=== PATIENT | female | born 1960 | race Caucasian/White ===

== ENCOUNTER → 2016-06-12 | Outpatient (CLI) | payer MEDICARE, MEDICAID ==
[~2016-06-12] VITALS: Ht 160 cm; Wt 83.9 kg
[~2016-06-12] MED LIST: AMBIEN 10MG10 MG PO; BACTRIM DS 8001 TAB PO; BUPROPRION; CALCIUM + D 5001 TAB; CELEXA; CELEXA 20MG20 MG/TAB PO; CELEXA40 MG PO; CEPHALEXIN500 M1 PO; COZAAR 50MG50 MG/TAB PO; COZAAR100 MG PO; DILAUDID 2MG TAB2 MG PO; EFFEXOR 75M75 MG/TAB PO; EMBEDA PO; ESTRACE0.5 MG PO; HTN MED; LORTAB 5/500 501 TAB PO; LYRICA 100MG C100 M1 PO; LYRICA 150MG C150 MG PO; LYRICA 75MG CAP75 MG PO; LYRICA200 MG PO; MOBIC15 MG PO; MULTIPLE VITAMI1 TA7 PO; NAPROSYN 2250 MG/TAB PO; NATURE'S BLE1000 MCG PO; NEURONTIN300 MG/CAP PO; NIACIN PO; NORCO 325 MG-101 TAB PO; PERCOCET 325 MG1 TA2 PO; PERCOCET 325 MG1 TAB PO; PERCR 7.5 PO; PHENTERMINE15 MG; PRIL40 PO; PRILOSEC 20MG20 MG PO; PROMETRIUM200 M1 PO; PROMETRIUM200 MG PO; SYNTHROID 0.0.025 MG PO; VICODIN 5/5001 UDTAB PO; VITAMIN B121000 MC1 PO; VITAMIN D3400 I1 PO; WELLBUTRIN XL150 MG PO; WELLBUTRIN XL300 M1 PO; ZANAFLEX 4MG TAB4 MG PO; ZOHYDRO ER10 MG PO; ZOHYDRO ER15 MG PO
[2016-06-12 11:13] VITALS: BP 145/89; PULSE 77
[2016-06-12 11:34] VITALS: BP 145/89; PULSE 77
== END ==
LOC: LIGHT 11:10
DX: I10 Essential (primary) hypertension (principal); R73.01 Impaired fasting glucose; E66.09 Other obesity due to excess calories; Z68.32 Body mass index [BMI] 32.0-32.9, adult; E88.81 Metabolic syndrome and other insulin resistance

== ENCOUNTER → 2016-09-15 | Outpatient (CLI) | payer MEDICARE, MEDICAID | LOC: MHCPAIN 09:58 | DX: G89.29 Other chronic pain (principal); M47.817 Spondylosis without myelopathy or radiculopathy, lumbosacral region; M54.16 Radiculopathy, lumbar region; M53.3 Sacrococcygeal disorders, not elsewhere classified; M96.1 Postlaminectomy syndrome, not elsewhere classified | CPT/HCPCS: G0463; J1100 ==

== ENCOUNTER → 2016-09-18 | Outpatient (CLI) | payer MEDICARE, MEDICAID | LOC: MHCPAIN 09:21 | DX: M54.16 Radiculopathy, lumbar region (principal) | CPT/HCPCS: J1100 ==

== ENCOUNTER → 2016-10-14 | Outpatient (CLI) | payer MEDICARE, MEDICAID | LOC: LIGHT 03-13 18:16 | DX: Z02.89 Encounter for other administrative examinations (principal) ==

== ENCOUNTER → 2016-11-04 | Outpatient (CLI) | payer MEDICARE, MEDICAID | LOC: MHCPAIN 11:06 | DX: G89.29 Other chronic pain (principal); M47.817 Spondylosis without myelopathy or radiculopathy, lumbosacral region; M54.16 Radiculopathy, lumbar region; M96.1 Postlaminectomy syndrome, not elsewhere classified | CPT/HCPCS: G0463 ==

== ENCOUNTER → 2016-11-25 | Outpatient (CLI) | payer MEDICARE, MEDICAID | LOC: MHCPAIN 12:05 | DX: G89.29 Other chronic pain (principal); M47.817 Spondylosis without myelopathy or radiculopathy, lumbosacral region; M54.16 Radiculopathy, lumbar region; M96.1 Postlaminectomy syndrome, not elsewhere classified | CPT/HCPCS: G0463 ==

== ENCOUNTER → 2017-02-16 | Outpatient (CLI) | payer MEDICARE, MEDICAID | LOC: MHCPAIN 08:30 | DX: G89.29 Other chronic pain (principal); M47.27 Other spondylosis with radiculopathy, lumbosacral region; M53.3 Sacrococcygeal disorders, not elsewhere classified; M96.1 Postlaminectomy syndrome, not elsewhere classified | CPT/HCPCS: G0463 ==

== ENCOUNTER → 2017-02-16 | Outpatient (CLI) | payer MEDICARE, MEDICAID ==
[~2017-02-16] MED LIST changes: +FASTIN30 MG PO; +PERCOCET 325 MG1 TA3 PO
[2017-02-16 10:49] LABS: ADJUSTED CALCIUM 9.7 mg/dL (8.4-10.2); BILIRUBIN,TOTAL 0.6 mg/dL (0.0-1.0); CALCIUM 9.7 mg/dL (8.4-10.2); CREATININE, serum 1.27 mg/dL (0.52-1.25); POTASSIUM 4.8 mmol/L (3.4-5.0)
== END ==
LOC: COL.LAB 09:32
PROVIDERS: Anesthesiology Pain Medicine
DX: Z51.81 Encounter for therapeutic drug level monitoring (principal)

== ENCOUNTER → 2017-02-26 | Outpatient (CLI) | payer MEDICARE, MEDICAID ==
[~2017-02-26] VITALS: Ht 160 cm; Wt 89.6 kg
[2017-02-26 13:28] VITALS: BP 128/88; PULSE 80
== END ==
LOC: LIGHT 10:57
DX: I10 Essential (primary) hypertension (principal); E66.9 Obesity, unspecified; Z68.36 Body mass index [BMI] 36.0-36.9, adult; Z71.3 Dietary counseling and surveillance; E88.81 Metabolic syndrome and other insulin resistance

== ENCOUNTER → 2017-04-29 | Outpatient (CLI) | payer MEDICARE, MEDICAID | LOC: MHCPAIN 11:03 | DX: G89.29 Other chronic pain (principal); M47.27 Other spondylosis with radiculopathy, lumbosacral region; M96.1 Postlaminectomy syndrome, not elsewhere classified; M53.3 Sacrococcygeal disorders, not elsewhere classified | CPT/HCPCS: G0463 ==

== ENCOUNTER → 2017-07-28 | Outpatient (CLI) | payer MEDICARE, MEDICAID | LOC: MHCPAIN 11:42 | DX: G89.29 Other chronic pain (principal); M47.817 Spondylosis without myelopathy or radiculopathy, lumbosacral region; M54.16 Radiculopathy, lumbar region; M53.3 Sacrococcygeal disorders, not elsewhere classified; M96.1 Postlaminectomy syndrome, not elsewhere classified | CPT/HCPCS: G0463 ==

== ENCOUNTER → 2017-08-05 | Outpatient (CLI) | payer MEDICARE, MEDICAID | LOC: MHCPAIN 12:44 | DX: G89.29 Other chronic pain (principal); M47.817 Spondylosis without myelopathy or radiculopathy, lumbosacral region; M54.16 Radiculopathy, lumbar region; M53.3 Sacrococcygeal disorders, not elsewhere classified; M96.1 Postlaminectomy syndrome, not elsewhere classified | CPT/HCPCS: G0463 ==

== ENCOUNTER → 2017-08-31 | Outpatient (CLI) | payer MEDICARE, MEDICAID | LOC: MC.RAD 08:40 | DX: Z12.31 Encounter for screening mammogram for malignant neoplasm of breast (principal) ==

== ENCOUNTER → 2017-10-30 | Outpatient (CLI) | payer MEDICARE, MEDICAID | LOC: MHCPAIN 09:40 | DX: G89.29 Other chronic pain (principal); M47.817 Spondylosis without myelopathy or radiculopathy, lumbosacral region; M54.16 Radiculopathy, lumbar region; M53.3 Sacrococcygeal disorders, not elsewhere classified; M96.1 Postlaminectomy syndrome, not elsewhere classified | CPT/HCPCS: G0463 ==

== ENCOUNTER → 2018-02-22 | Outpatient (CLI) | payer MEDICARE, MEDICAID | LOC: MHCPAIN 11:17 | DX: G89.29 Other chronic pain (principal); M47.817 Spondylosis without myelopathy or radiculopathy, lumbosacral region; M54.16 Radiculopathy, lumbar region; M53.3 Sacrococcygeal disorders, not elsewhere classified; M96.1 Postlaminectomy syndrome, not elsewhere classified | CPT/HCPCS: G0463 ==

== ENCOUNTER → 2018-02-25 | Outpatient (CLI) | payer MEDICARE, MEDICAID | LOC: MHCPAIN 10:31 | DX: M51.36 Other intervertebral disc degeneration, lumbar region (principal); M54.16 Radiculopathy, lumbar region | CPT/HCPCS: J1040; Q9967 ==

== ENCOUNTER → 2018-09-02 | Outpatient (CLI) | payer MEDICARE, MEDICAID | LOC: MHCPAIN 15:21 | DX: G89.29 Other chronic pain (principal); M47.817 Spondylosis without myelopathy or radiculopathy, lumbosacral region; M54.16 Radiculopathy, lumbar region; M53.3 Sacrococcygeal disorders, not elsewhere classified; M96.1 Postlaminectomy syndrome, not elsewhere classified | CPT/HCPCS: G0463 ==

== ENCOUNTER 2018-09-09 08:13 | Outpatient (CLI) | payer MEDICARE, MEDICAID ==
[~2018-09-09] VITALS: Ht 160 cm; Wt 97.4 kg
[2018-09-09] VITALS (7 sets, daily range): BP systolic 130–139; BP diastolic 54–90; PULSE 66–87
--- NOTE | 2018-09-09 09:45 | NUR ---
PT TO RM 10 POST MYELOGRAM. VSS AND AX0X3. PATIENT DENIES PAIN BEING WORSE THAN PREVIOUS. BAND AID TO LOWER BACK IS C/D/I. RESTING IN BED AT THIS TIME.
--- NOTE | 2018-09-09 11:00 | NUR ---
BAND AID TO LOWER BACK REMAINED C/D/I POST MYELOGRAM. VSS AND AX0X3. TOLERATED CLEAR LIQUIDS PO WITHOUT ISSUE. DISCHARGE INSTRUCTIONS REVIEWED AND SIGNED. PT WHEELED OUT SAFELY WHERE FRIEND WAS PRESENT HIGHWAY MAINTENANCE TECHNICIAN.
== END 2018-09-09 11:00 | disposition home or self-care (01) ==
LOC: COL.RAD 08:13
DX: M51.36 Other intervertebral disc degeneration, lumbar region (principal); M96.1 Postlaminectomy syndrome, not elsewhere classified; Z90.5 Acquired absence of kidney; Z98.1 Arthrodesis status
CPT/HCPCS: Q9965

== ENCOUNTER → 2018-10-18 | Outpatient (CLI) | payer MEDICARE, MEDICAID | LOC: MHCPAIN 10:08 | DX: G89.29 Other chronic pain (principal); M47.817 Spondylosis without myelopathy or radiculopathy, lumbosacral region; M54.16 Radiculopathy, lumbar region; M53.3 Sacrococcygeal disorders, not elsewhere classified; M96.1 Postlaminectomy syndrome, not elsewhere classified | CPT/HCPCS: G0463 ==

== ENCOUNTER 2018-10-22 14:37 | Day surgery (SDC) | payer MEDICARE, MEDICAID ==
[~2018-10-22] VITALS: Ht 157.5 cm; Wt 93.7 kg
[2018-10-22 14:55] VITALS: BP 136/79; PULSE 76; TEMP 98.1
[2018-10-22] MEDS ORDERED: OSCAL 500 TAB500 MG PO (14:58)
[2018-10-22] MEDS ORDERED: VITAMIN D31000 I1 PO (14:59)
[2018-10-22] MEDS ORDERED: VITAMIN B12 781 TAB PO (14:59)
[2018-10-22] MEDS ORDERED: ZANAFLEX 4MG TAB4 MG PO (15:02)
[2018-10-22] MEDS ORDERED: CELEBREX 200MG200 MG PO (15:03)
[2018-10-22] MEDS ORDERED: MULTIPLE VITAMI1 TA1 PO (15:03)
[2018-10-22 16:10] VITALS: BP 115/75; PULSE 79; TEMP 97.6
--- NOTE | 2018-10-22 16:10 | NUR ---
Patient brought back to bay 2. Ambulated to chair without difficulty. Alert and oriented. Denies any pain or nausea. Vital signs stable. Requesting muffin and soda, tolerating well. Friend Servando at bedside. Call gee within reach will continue to monitor.
[2018-10-22 16:25] VITALS: BP 121/91; PULSE 76
--- NOTE | 2018-10-22 16:25 | NUR ---
Patient states she is feeling well. Vital signs stable. Tolerating food and drink well. Will continue to monitor.
[2018-10-22 16:40] VITALS: BP 126/71; PULSE 85
--- NOTE | 2018-10-22 16:40 | NUR ---
Patient states that she is ready to go home. Vital signs stable. Discharge instructions reviewed, all questions answered. IV removed per orders. Patient to get dressed at this time.
--- NOTE | 2018-10-22 16:46 | NUR ---
Patient brought down to lobby via wheel chair. To be driven home by friend Fabian.
== END 2018-10-22 16:46 | disposition home or self-care (01) ==
LOC: SDCO 14:37
DX: K21.0 Gastro-esophageal reflux disease with esophagitis (principal); K92.1 Melena; K57.30 Diverticulosis of large intestine without perforation or abscess without bleeding; K64.1 Second degree hemorrhoids; G47.33 Obstructive sleep apnea (adult) (pediatric); K21.9 Gastro-esophageal reflux disease without esophagitis; E66.9 Obesity, unspecified; G89.29 Other chronic pain; M19.90 Unspecified osteoarthritis, unspecified site; F32.9 Major depressive disorder, single episode, unspecified; D64.9 Anemia, unspecified; Z96.642 Presence of left artificial hip joint; Z88.5 Allergy status to narcotic agent; Z88.1 Allergy status to other antibiotic agents
CPT/HCPCS: J2704; J7030

== ENCOUNTER → 2018-10-28 | Outpatient (CLI) | payer MEDICARE, MEDICAID ==
[~2018-10-28] MED LIST changes: +CELEBREX 200MG200 MG PO; +MULTIPLE VITAMI1 TA1 PO; +OSCAL 500 TAB500 MG PO; +VITAMIN B12 781 TAB PO; +VITAMIN D31000 I1 PO
== END ==
LOC: MC.RAD 15:45
DX: Z12.31 Encounter for screening mammogram for malignant neoplasm of breast (principal)

== ENCOUNTER → 2018-11-08 | Outpatient (CLI) | payer MEDICARE, MEDICAID | LOC: MHCPAIN 10:59 | DX: M47.817 Spondylosis without myelopathy or radiculopathy, lumbosacral region (principal); M54.16 Radiculopathy, lumbar region; M96.1 Postlaminectomy syndrome, not elsewhere classified | CPT/HCPCS: J0690 ==

== ENCOUNTER → 2018-11-15 | Outpatient (CLI) | payer MEDICARE, MEDICAID | LOC: MHCPAIN 11:36 | DX: G89.29 Other chronic pain (principal); M47.817 Spondylosis without myelopathy or radiculopathy, lumbosacral region; M54.16 Radiculopathy, lumbar region; M53.3 Sacrococcygeal disorders, not elsewhere classified; M96.1 Postlaminectomy syndrome, not elsewhere classified | CPT/HCPCS: G0463 ==

== ENCOUNTER → 2019-02-14 | Outpatient (CLI) | payer MEDICARE, MEDICAID | LOC: MHCPAIN 10:54 | DX: G89.29 Other chronic pain (principal); M47.817 Spondylosis without myelopathy or radiculopathy, lumbosacral region; M54.16 Radiculopathy, lumbar region; M53.3 Sacrococcygeal disorders, not elsewhere classified; M96.1 Postlaminectomy syndrome, not elsewhere classified | CPT/HCPCS: G0463 ==

== ENCOUNTER → 2019-07-13 | Outpatient (CLI) | payer MEDICARE, MEDICAID ==
[~2019-07-13] MED LIST changes: +ASPIRIN E.C. 8181 MG PO; -LYRICA200 MG PO; +TAMBOCOR 1100 MG/TAB PO; +TOPROL XL 50MG50 MG PO
== END ==
LOC: MHCPAIN 12:28
DX: M53.3 Sacrococcygeal disorders, not elsewhere classified (principal); M54.16 Radiculopathy, lumbar region; M96.1 Postlaminectomy syndrome, not elsewhere classified; I48.0 Paroxysmal atrial fibrillation
CPT/HCPCS: G0463

== ENCOUNTER 2019-08-08 08:55 | Day surgery (SDC) | payer MEDICARE, MEDICAID ==
[~2019-08-08] VITALS: Ht 157.6 cm; Wt 100.6 kg
[2019-08-08] VITALS (14 sets, daily range): BP systolic 90–142; BP diastolic 46–89; PULSE 54–72; TEMP 98
[~2019-08-08 08:55] MED LIST changes: -ASPIRIN E.C. 8181 MG PO; -TAMBOCOR 1100 MG/TAB PO; -TOPROL XL 50MG50 MG PO
[2019-08-08] MEDS ORDERED: ASPIRIN E.C. 8181 MG PO (09:30)
[2019-08-08] MEDS ORDERED: TAMBOCOR 1100 MG/TAB PO (09:30)
[2019-08-08] MEDS ORDERED: TOPROL XL 50MG50 MG PO (09:31)
[2019-08-08 10:02] LABS: INR 0.9 (0.8-3.0); MEAN CELL VOLUME 97 fl (80.0-100.0); MEAN CORPUSCULAR HEMOGLOBIN 32 pg (27.0-31.0); MEAN CORPUSCULAR HGB CONC 33 g/dl (33.0-37.0); MEAN PLATELET VOLUME 10.6 fl (7.4-10.4); PLATELET COUNT 196 K/mm3 (130-400); PROTHROMBIN TIME 10.8 SECONDS (9.7-12.8); RED BLOOD COUNT 3.78 M/mm3 (4.10-5.30); REDCELL DISTRIBUTION WIDTH-CV 13.2 % (11.5-14.5)
[2019-08-08 10:04] LABS: PARTIAL THROMBOPLASTIN TIME 31.8 SECONDS (26.0-37.0)
[2019-08-08 10:05] LABS: CALCIUM 9.1 mg/dL (8.4-10.2); CREATININE, serum 1.52 (0.52-1.25); POTASSIUM 4.3 mmol/L (3.4-5.0)
[2019-08-08 10:08] LABS: HEMATOCRIT 36.7 % (37.0-47.0)
--- NOTE | 2019-08-08 10:44 | NUR ---
SEE MERGE FOR MEDICATION ADMINISTRATION TIMES AND INTRA AND POST SEDATION ASSESSMENTS.
--- NOTE | 2019-08-08 11:30 | NUR ---
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 p,w,d, reg and unlabored respirations. TR band with 12 cc air to rt wrist. pt reports some numbness to fingers. vice president supply chain brisk, good waveform with pulse oximeter, no bleeding or hematoma noted. wctm.
--- NOTE | 2019-08-08 12:21 | NUR ---
PT resting on bed with hob elevated to eat and drink. she is awake and alert talking with new. I reviewed dc/fu instructions with her and gave written instructions. pt reports some numbness still to rt thumb, 1 cc air removed from band without bleeding or hematoma. wctm.
--- NOTE | 2019-08-08 13:30 | NUR ---
Pt is doing well, attempted to remove 3 cc air from band, there was some bleeding so this air was returned to band with hemostasis. cms intact distal. pt has no needs at this time
--- NOTE | 2019-08-08 15:08 | NUR ---
Pt has been doing well during recovery, denies any complaints, has been sleeping on and off. rt radial site free of bleeding or hematoma, no numbness to fingers/thumb of rt hand. the remainder of air removed from TR band at this time. bandaid applied. discharge is pending.
--- NOTE | 2019-08-08 16:10 | NUR ---
no bleeding or hematoma at sit, cms intact to rt hand. pt has been ambulatory to br with steady gait, dc/f/u instructions have been reviewed and pt denies any questions at this time. IV dc'd with cath intact, dressing applied. she is escorted to exit at 1630 [facility]
== END 2019-08-08 17:31 | disposition home or self-care (01) ==
LOC: COL.CAR 08:55
PROVIDERS: Internal Medicine Cardiovascular Disease
DX: R06.02 Shortness of breath (principal); R94.39 Abnormal result of other cardiovascular function study; I25.2 Old myocardial infarction; I12.9 Hypertensive chronic kidney disease with stage 1 through stage 4 chronic kidney disease, or unspecified chronic kidney disease; N18.3 Chronic kidney disease, stage 3 (moderate); Z90.5 Acquired absence of kidney; G47.33 Obstructive sleep apnea (adult) (pediatric); G89.29 Other chronic pain; K21.9 Gastro-esophageal reflux disease without esophagitis; E66.01 Morbid (severe) obesity due to excess calories; Z68.41 Body mass index [BMI] 40.0-44.9, adult; I48.0 Paroxysmal atrial fibrillation; Z79.899 Other long term (current) drug therapy; Z82.49 Family history of ischemic heart disease and other diseases of the circulatory system; Z79.82 Long term (current) use of aspirin; I08.1 Rheumatic disorders of both mitral and tricuspid valves
CPT/HCPCS: J1644; J2250; J3010; Q9967

== ENCOUNTER → 2019-12-07 | Outpatient (CLI) | payer MEDICARE, MEDICAID ==
[~2019-12-07] MED LIST changes: +ASPIRIN E.C. 8181 MG PO; +TAMBOCOR 1100 MG/TAB PO; +TOPROL XL 50MG50 MG PO
== END ==
LOC: MHCPAIN 10:11
DX: M47.817 Spondylosis without myelopathy or radiculopathy, lumbosacral region (principal); M54.5 Low back pain; M96.1 Postlaminectomy syndrome, not elsewhere classified; M53.3 Sacrococcygeal disorders, not elsewhere classified; M54.18 Radiculopathy, sacral and sacrococcygeal region
CPT/HCPCS: G0463

== ENCOUNTER → 2020-03-14 | Outpatient (CLI) | payer MEDICARE, MEDICAID | LOC: MHCPAIN 10:59 | DX: M47.817 Spondylosis without myelopathy or radiculopathy, lumbosacral region (principal); M96.1 Postlaminectomy syndrome, not elsewhere classified; M54.5 Low back pain; M53.3 Sacrococcygeal disorders, not elsewhere classified; M54.16 Radiculopathy, lumbar region | CPT/HCPCS: G0463 ==

== ENCOUNTER → 2020-03-28 | Outpatient (CLI) | payer MEDICARE, MEDICAID | LOC: ZCOL.LAB 16:13 | DX: R05 Cough (principal); R51.9 Headache, unspecified; Z20.828 Contact with and (suspected) exposure to other viral communicable diseases ==

== ENCOUNTER → 2020-09-04 | Outpatient (CLI) | payer MEDICARE, MEDICAID | LOC: MHCPAIN 11:18 | DX: M47.816 Spondylosis without myelopathy or radiculopathy, lumbar region (principal); M96.1 Postlaminectomy syndrome, not elsewhere classified; M54.5 Low back pain; G89.29 Other chronic pain | CPT/HCPCS: G0463 ==

== ENCOUNTER 2020-10-26 10:30 | Outpatient (RCR) | payer MEDICARE, MEDICAID | END 2020-10-26 11:30 | disposition home or self-care (01) | LOC: WSPT 10:30 | DX: M47.896 Other spondylosis, lumbar region (principal) ==

== ENCOUNTER → 2020-11-13 | Outpatient (CLI) | payer MEDICARE, MEDICAID | LOC: MC.RAD 11:00 | DX: Z12.31 Encounter for screening mammogram for malignant neoplasm of breast (principal) ==

== ENCOUNTER → 2020-11-27 | Outpatient (CLI) | payer MEDICARE, MEDICAID | LOC: MHCPAIN 11:06 | DX: M47.816 Spondylosis without myelopathy or radiculopathy, lumbar region (principal); M96.1 Postlaminectomy syndrome, not elsewhere classified; M54.17 Radiculopathy, lumbosacral region | CPT/HCPCS: G0463 ==

== ENCOUNTER → 2021-04-03 | Outpatient (CLI) | payer MEDICARE, MEDICAID | LOC: MHCPAIN 02-27 11:20 | DX: M47.896 Other spondylosis, lumbar region (principal); M54.17 Radiculopathy, lumbosacral region; M96.1 Postlaminectomy syndrome, not elsewhere classified | CPT/HCPCS: G0463 ==

== ENCOUNTER → 2021-07-03 | Outpatient (CLI) | payer MEDICARE, MEDICAID | LOC: MHCPAIN 13:51 | DX: M47.896 Other spondylosis, lumbar region (principal); M79.2 Neuralgia and neuritis, unspecified; M96.1 Postlaminectomy syndrome, not elsewhere classified | CPT/HCPCS: G0463 ==

== ENCOUNTER → 2021-11-11 | Outpatient (CLI) | payer MEDICARE, MEDICAID | LOC: MHCPAIN 13:19 | DX: M47.817 Spondylosis without myelopathy or radiculopathy, lumbosacral region (principal); M53.3 Sacrococcygeal disorders, not elsewhere classified; M96.1 Postlaminectomy syndrome, not elsewhere classified; M54.50 Low back pain, unspecified | CPT/HCPCS: G0463 ==

== ENCOUNTER → 2021-12-27 | Outpatient (CLI) | payer MEDICARE, MEDICAID | LOC: MC.RAD 07:09 | DX: Z12.31 Encounter for screening mammogram for malignant neoplasm of breast (principal) ==

== ENCOUNTER → 2022-01-03 | Outpatient (CLI) | payer MEDICARE, MEDICAID | LOC: COL.RAD 10:40 | DX: K21.9 Gastro-esophageal reflux disease without esophagitis (principal); K44.9 Diaphragmatic hernia without obstruction or gangrene; Z90.3 Acquired absence of stomach [part of]; Z98.84 Bariatric surgery status ==

== ENCOUNTER → 2022-01-08 | Outpatient (CLI) | payer MEDICARE, MEDICAID | LOC: COL.RAD 12:34 | DX: K44.9 Diaphragmatic hernia without obstruction or gangrene (principal); M16.0 Bilateral primary osteoarthritis of hip; K21.9 Gastro-esophageal reflux disease without esophagitis; M47.816 Spondylosis without myelopathy or radiculopathy, lumbar region; Z98.1 Arthrodesis status; Z98.890 Other specified postprocedural states; Z90.3 Acquired absence of stomach [part of]; Z90.5 Acquired absence of kidney | CPT/HCPCS: Q9967 ==

== ENCOUNTER 2022-04-02 11:15 | Outpatient (RCR) | payer MEDICARE, MEDICAID | END 2022-04-07 | disposition home or self-care (01) | LOC: WSC | DX: M96.1 Postlaminectomy syndrome, not elsewhere classified (principal); M47.816 Spondylosis without myelopathy or radiculopathy, lumbar region ==

== ENCOUNTER 2023-03-04 13:30 | Outpatient (RCR) | payer MEDICARE, MEDICAID | END 2023-03-07 | disposition home or self-care (01) | LOC: WSPT | DX: M54.50 Low back pain, unspecified (principal); M25.559 Pain in unspecified hip; E66.9 Obesity, unspecified ==

== ENCOUNTER → 2023-03-16 | Outpatient (CLI) | payer MEDICARE, MEDICAID | LOC: MHCPAIN 11:12 | DX: M47.896 Other spondylosis, lumbar region (principal); M96.1 Postlaminectomy syndrome, not elsewhere classified; G89.29 Other chronic pain | CPT/HCPCS: G0463 ==

== ENCOUNTER → 2023-07-01 | Outpatient (CLI) | payer MEDICARE, MEDICAID ==
[~2023-07-01] MED LIST changes: +PREDNISONE20 MG PO
== END ==
LOC: MHCPAIN 11:15
DX: M46.1 Sacroiliitis, not elsewhere classified (principal); M96.1 Postlaminectomy syndrome, not elsewhere classified; M47.896 Other spondylosis, lumbar region
CPT/HCPCS: G0463

== ENCOUNTER → 2023-07-06 | Outpatient (CLI) | payer MEDICARE, MEDICAID ==
[~2023-07-06] MED LIST changes: +Iohexol 300 - 10 ML VIAL ONE; +Lidocaine PF 2% (20 MG/ML) 2 ML VIAL ONE
== END ==
LOC: MHCPAIN 08:28
DX: M47.816 Spondylosis without myelopathy or radiculopathy, lumbar region (principal); M96.1 Postlaminectomy syndrome, not elsewhere classified; M54.16 Radiculopathy, lumbar region
CPT/HCPCS: J1100; Q9967

== ENCOUNTER 2023-07-22 10:44 | Inpatient (IN) | payer MEDICARE, MEDICAID ==
[~2023-07-22] VITALS: Ht 152.4 cm; Wt 102.1 kg
[~2023-07-22 10:44] MED LIST changes: -Iohexol 300 - 10 ML VIAL ONE; -Lidocaine PF 2% (20 MG/ML) 2 ML VIAL ONE
[2023-08-26] VITALS (13 sets, daily range): BP systolic 106–150; BP diastolic 64–83; PULSE 61–78; TEMP 97.8–98
[2023-08-26] MEDS ORDERED: LR 1,000 ML IV SCH (06:00)
--- NOTE | 2023-08-26 06:48 | NUR ---
PATIENT ADMITTED TO [facility] AND IS ALERT AND ORIENTED X3. PATIENT VOICES UNDERSTANDING OF SURGERY AND CONSENTS SIGNED. RING TAPED ON THE RIGHT THIRD FINGER. UNABLE TO GET THIS OFF. ALSO TAPED RIGHT NASAL PIERCING. WATCH AND EARRINGS REMOVED AND PLACED IN LABELED BAG WITH BELONGINGS. CELL PHONE GIVEN TO SHAWN AND GLASSES IN CASE WITH BELONGINGS.
[2023-08-26] MEDS ORDERED: fentaNYL 50 MCG/ML 5 ML VIAL ONE (06:50)
[2023-08-26] MEDS ORDERED: Midazolam 2 MG/2 ML VIAL ONE (06:50)
[2023-08-26] MEDS ORDERED: Rocuronium 50 MG/5 ML Multi-Dose VIAL ONE ×3 (06:50→09:17)
[2023-08-26] MEDS ORDERED: Glycopyrrolate 0.2 MG/ML 1 ML VIAL ONE (06:51)
[2023-08-26] MEDS ORDERED: Succinylcholine PF 200 MG/10 ML SYRINGE IV ONE (06:51)
[2023-08-26] MEDS ORDERED: NS 10 ML IV ONE ×2 (06:51→07:21)
[2023-08-26] MEDS ORDERED: Ondansetron 4 MG/2 ML VIAL ONE ×2 (06:51→08:48)
[2023-08-26] MEDS ORDERED: dexAMETHasone 10 MG/ML VIAL ONE (06:54)
[2023-08-26] MEDS ORDERED: Lidocaine PF 2% (20 MG/ML) 5 ML VIAL ONE (06:55)
[2023-08-26] MEDS ORDERED: PROAIR HFA0.09 MG/AC IH (07:02)
[2023-08-26] MEDS ORDERED: LIPITOR20 MG PO (07:03)
[2023-08-26] MEDS ORDERED: B COMPLEX & B121 TAB PO (07:04)
[2023-08-26] MEDS ORDERED: CALCIUM CARBONATE PO (07:06)
[2023-08-26] MEDS ORDERED: VITAMIN D 400400 IU PO (07:08)
[2023-08-26] MEDS ORDERED: CALCIUM 600MG+D1 TAB PO (07:09)
[2023-08-26] MEDS ORDERED: VOLTAREN GEL 1%1 TU TP (07:16)
[2023-08-26] MEDS ORDERED: LASIX 20MG TABL20 MG PO (07:18)
[2023-08-26] MEDS ORDERED: PERCOCET 325 MG1 TA3 PO (07:19)
[2023-08-26] MEDS ORDERED: PROTONIX 40MG T40 MG PO ×2 (07:20)
[2023-08-26] MEDS ORDERED: ZANAFLEX2 MG PO (07:21)
[2023-08-26] MEDS ORDERED: PROBIOTIC-MAJOR PO (07:21)
[2023-08-26] MEDS ORDERED: Phenylephrine 10 MG/ML VIAL ONE (07:21)
[2023-08-26] MEDS ORDERED: ZANAFLEX CAPSULE4 MG PO (07:22)
[2023-08-26] MEDS ORDERED: [UNRECOGNIZED DRUG - CODE] SL (07:26)
[2023-08-26] MEDS ORDERED: FOLIC ACID 40400 MCG SL (07:27)
[2023-08-26] MEDS ORDERED: NATURAL E400 IU PO (07:28)
[2023-08-26] MEDS ORDERED: ePHEDrine 50 MG/ML VIAL ONE (08:06)
[2023-08-26] MEDS ORDERED: Meperidine 50 MG/ML 1 ML VIAL IV PRN (08:45)
[2023-08-26] MEDS ORDERED: Haloperidol Lactate 5 MG/ML VIAL IV ONE (08:45)
[2023-08-26] MEDS ORDERED: Ondansetron 4 MG/2 ML VIAL IV PRN ×2 (08:45→11:00)
[2023-08-26] MEDS ORDERED: hydrALAZINE 20 MG/ML 1 ML VIAL IV PRN (08:45)
[2023-08-26] MEDS ORDERED: fentaNYL 50 MCG/ML 2 ML VIAL IV PRN (08:45)
[2023-08-26] MEDS ORDERED: HYDROmorphone 2 MG/1 ML VIAL IV PRN (08:45)
[2023-08-26] MEDS ORDERED: Naloxone 0.4 MG/ML VIAL IV PRN (11:00)
[2023-08-26] MEDS ORDERED: diphenhydrAMINE 25 MG CAP PO PRN (11:00)
[2023-08-26] MEDS ORDERED: D5 1/2 NS & 20 mEq KCl 1,000 ML IV SCH (11:00)
[2023-08-26] MEDS ORDERED: diphenhydrAMINE 50 MG/ML 1 ML VIAL IV PRN (11:00)
[2023-08-26] MEDS ORDERED: oxyCODONE Oral Soln 5 MG/5 ML UD PO PRN (11:00)
[2023-08-26] MEDS ORDERED: Promethazine 25 MG Rectal SUPP RC PRN (11:00)
[2023-08-26] MEDS ORDERED: HYDROmorphone 0.5 MG/0.5 ML SYRINGE IV PRN (11:00)
[2023-08-26] MEDS ORDERED: Albuterol 0.042% Neb Soln 1.25 MG/3 ML UD IH PRN (11:15)
[2023-08-26] MEDS ORDERED: Scopolamine 1 MG Delivered 3-Day PATCH TD ONE (11:15)
[2023-08-26] MEDS ORDERED: Acetaminophen Oral Susp 325 MG/10.15 ML UD PO SCH (11:50)
--- NOTE | 2023-08-26 12:00 | NUR ---
pt transferred to room from pacu, at bedside. pt drowsy but easily awaken to answer questions. x5 lap sites and 1 RAYMUNDO site are all cdi. calle to dd w clear yellow urine output. pt on 4L oxymask, breathing unlabored. vss. scds to ble. IV to left wrist patent. oriented pt to room. call light in reach.
[2023-08-26] MEDS ORDERED: Pregabalin 150 MG CAP PO SCH (14:00)
--- NOTE | 2023-08-26 14:00 | NUR ---
pt complaining of gas pains, assisted pt to ambulate in the hallway. pt denies abdominal discomfort but rates shoulder and ear pain a 05/17. vss. dilaudid given per emar. encouraged pt to keep ambulating to help expell the gases to provide pain relief and that pain medication does not help for gas pain.
[2023-08-26] MEDS ORDERED: tiZANidine 4 MG TAB PO SCH (21:00)
--- NOTE | 2023-08-26 21:05 | NUR ---
PT IN BED. WALKED AT SHIFT CHANGE WITH STAFF. PT MEDICATED WITH PRN DILAUDID 0.25MG IVP FOR ABD PAIN. LOVENOX GIVEN, OTHER HS MEDS HELD D/T NPO STATUS. EMPTIED 30CC FLUID FROM RAYMUNDO DRAIN, PLACED BACK TO BULB SUCTION. IVF TO LT HAND INFUSING WITHOUT PROBLEM.
[2023-08-27] VITALS (15 sets, daily range): BP systolic 95–124; BP diastolic 64–81; PULSE 70–77; TEMP 97.7–98.7
--- NOTE | 2023-08-27 00:01 | NUR ---
SCHEDULED LIQUID TYLENOL GIVEN WITH PRN LIQUID OXYCODONE. ICE PACK REPLACED TO ABD PER HER REQUEST. ABD ROBOTIC SITES X5, RAYMUNDO DRAIN PATENT.
--- NOTE | 2023-08-27 04:30 | NUR ---
Pt ambulated out of bed and down frost x2 assist. Pt walked about 100 feet. Pt holding onto hand rail for stability. Pt declined walker/cane. Gait belt was utilized. Pt sitting in bed side chair with feet elevated and call light in reach.
--- NOTE | 2023-08-27 04:51 | NUR ---
AMBULATES IN HALLWAY WITH STAFF, SLOW AND STEADY. DOES WELL. MEDICATED WITH LIQUID OXYCODONE AND DILAUDID 0.25MG IVP NOW.
--- NOTE | 2023-08-27 06:36 | NUR ---
SCHEDULED LIQUID TYLENOL GIVEN AND PRN DILAUDID 0.25MG IVP GIVEN FOR ABD PAIN. PT RESTING TO HER RT SIDE, REPORTS GETTING SOME SLEEP AFTER LAST DILAUDID.
[2023-08-27 06:49] LABS: BASO % 0.1 % (0.0-2.0); GRAN # 5.7 K/mm3 (1.4-6.5); GRAN % 68.4 % (42.2-75.2); HEMOGLOBIN 11.2 g/dl (12.5-16.0); LYMPH # 1.8 K/mm3 (1.2-3.4); LYMPH % 21.3 % (20.0-51.0); MEAN CELL VOLUME 99 fl (80.0-100.0); MEAN CORPUSCULAR HEMOGLOBIN 32 pg (27-31); MEAN CORPUSCULAR HGB CONC 33 g/dl (33.0-37.0); MEAN PLATELET VOLUME 12.7 fl (7.4-10.4); MONO # 0.8 K/mm3 (0.1-0.6); PLATELET COUNT 148 K/mm3 (130-400); RED BLOOD COUNT 3.48 M/mm3 (4.10-5.30); REDCELL DISTRIBUTION WIDTH-CV 13.2 % (11.5-14.5)
[2023-08-27 06:50] LABS: HEMATOCRIT 34.5 % (37.0-47.0)
[2023-08-27 07:07] LABS: ALBUMIN 3.3 gm/dL (3.4-4.8); BILIRUBIN,TOTAL 0.4 mg/dL (0.2-1.2); CALCIUM 9.1 mg/dL (8.4-10.2); CREATININE, serum 1.35 mg/dL (0.57-1.11); POTASSIUM 4.6 mmol/L (3.5-4.5)
--- NOTE | 2023-08-27 08:15 | NUR ---
Pt laying in bed. Ice pack on ABD. Pt sleeping but able to wake up for assessment and A&Ox4. VSS. S1S2 and clear lung sounds. Pt on 1.5 L O2 via NC. ABD is rounded and firm. Pt reports 9/10 pain in ABD, worse with movement. REpositioned Pt and replenished ice pack. Kilgore is in place with clear, yellow urine. x5 Robotic sites on ABD are well approximated and open to air. RAYMUNDO drain has gauze and tape. CDI. IV in L hand with fluids running at 125 mL/hr. Discussed plan for the day with Pt - Barium Swallow. Pt has call light in reach and bed alarm on.
--- NOTE | 2023-08-27 08:45 | NUR ---
Pt reporting continuous pain in ABD. Administered pain meds. Collected Amylase from RAYMUNDO drain. Pt has call light in reach. No further needs at this time.
[2023-08-27] MEDS ORDERED: tiZANidine 4 MG TAB PO SCH (09:00)
[2023-08-27] MEDS ORDERED: buPROPion XL (24-HR) 150 MG TAB PO SCH (09:00)
[2023-08-27] MEDS ORDERED: Pantoprazole 40 MG in NS 10 ML IV SCH (09:00)
--- NOTE | 2023-08-27 09:43 | NUR ---
Pt transported to [facility] for Barium Study via . INT fluids.
--- NOTE | 2023-08-27 10:11 | NUR ---
Pt back from RAD. Transferred to bed. Resumed IV fluids. Gave Pt new ice pack and 1/2 cup ice chips. Pt's granddaughter in room. Pt has call light and bed alarm on.
--- NOTE | 2023-08-27 11:00 | NUR ---
Started Pt on Clear Liquid Diet 30mLs q1hr. Pt reported heavy chest pain. Per Pt started last night. VS checked. Called Dr Johny LMOM. WIll continue to monitor and reaching out to Dr Mcclain.
--- NOTE | 2023-08-27 11:08 | NUR ---
workers compensation claims adjuster met with patient to discuss discharge planning. Patient lives in [place] with her ex-boyfriend, Servando, P# [phone]. Next of kin is daughter, Doris, P# [phone]. PCP is Dr. Ahumada, pharmacy is [facility]. No issues affording medications. Insurance is Medicare A and B and Supers[employer]. No DPOA-HC but was interested in reviewing the form, SW left a blank form along with her phone number if patient wanted to complete it later. No DME. Patient reports to be independent with ADLS prior to hospitalization. No issues with transportation to and from appointments. Patient would like to return home at time of discharge. DIscharge plan: Home
--- NOTE | 2023-08-27 13:16 | NUR ---
D: Initial visit: Outpatient Coding Specialist stopped by room on rounds. Pt was resting and content. A: Pt has no needs right now. P: Outpatient Coding Specialist informed pt that if she needed anything from the scanning manager area to let her nurse know. Outpatient Coding Specialist will follow up as needed.
--- NOTE | 2023-08-27 14:06 | NUR ---
Pt refusing Incentive Spirometer. Pt refused bath. Strongly encouraged to get up and move. Pt ambulated with [facility] once this shift (~12:00). Pt refused ambulation at 1400. Explained benefits of IS and hygiene.
--- NOTE | 2023-08-27 14:41 | NUR ---
Pt laying in bed. Administered meds as per EMAR. Pt requesting fresh ice for ice pack. Pt declined juice or water. Pt stated "doing ok on ice chips." Refreshed ice pack. Pt's friend at bedside.
--- NOTE | 2023-08-27 15:04 | NUR ---
Pt refused Incentive Spirometer.
[2023-08-27] MEDS ORDERED: oxyCODONE 5 MG TAB PO PRN (17:30)
--- NOTE | 2023-08-27 18:02 | NUR ---
Pt reporting pain. 9/10 in ABD and headache. Administered pain meds as per EMAR. Notified Pt of advancing diet to 30 mLs q 15 min. Pt declined water or juice at this time.
[2023-08-27] MEDS ORDERED: Sennosides/Docusate 8.6-50 MG TAB PO SCH (21:00)
--- NOTE | 2023-08-27 21:00 | NUR ---
PT RESTING IN BED WITH UNLABORED RESP, AROUSES TO VOICE. A&O X3. VSS ON 2L/NC. DENIES N/V. STATES SHE DOES HAVE SOME ABD PAIN BUT THE ICE PACK & PAIN MEDS HAVE HELPED. X5 ABD LAP SITES SEED BUYER & EDGES WELL APPROX. RAYMUNDO DRAIN W/ MINIMAL REDDISH OUTPUT. WOODS TO DD WITH YELLOW OUTPUT. REFUSING SCDS. DENIES FURTHER NEEDS. CALL LIGHT IN REACH & BED ALARM ON
[2023-08-28] VITALS (11 sets, daily range): BP systolic 73–110; BP diastolic 57–70; PULSE 65–81; TEMP 97.6–98.3
--- NOTE | 2023-08-28 01:42 | NUR ---
PT RESTING IN BED WITH UNLABORED RESP. CALL LIGHT IN REACH
--- NOTE | 2023-08-28 06:21 | NUR ---
PT REPORTS SLEEPING VERY GOOD LAST NIGHT. CURRENTLY RESTING IN BED WITH UNLABORED RESP. GIVEN SCHEDULED TYLENOL FOR PAIN. PT TOLERATING SIPS OF WATER. DENYING FURTHER NEEDS. CALL LIGHT IN REACH
--- NOTE | 2023-08-28 07:00 | NUR ---
Pt sleeping during bedside shift reported. Pt did not wake during this time
--- NOTE | 2023-08-28 07:13 | NUR ---
Received report from Imani RUST.
--- NOTE | 2023-08-28 07:54 | NUR ---
PT RESTING IN BED WITH UNLABORED RESPIRATIONS. VSS. PT CURRENTLY ON SP02 1L NC. PT USED INCENTIVE SPIROMETER THIS MORNING AND EDUCATED THE IMPORTANCE OF USING IT. INCISIONS X5 TO ABDOMEN WELL APPROXIMATED WITH NO REDNESS OR TENDERNESS NOTED. RAYMUNDO DRAIN WITH BULB SUCTION TO L LOWER ABDOMEN PRESENT WITH SCANT AMOUNT OF SEROSANGIOUS DRAINAGE PRESENT IN BULB AND ON DRESSING. INDWELLING CATHETER PRESENT WITH 350 OF ML PALE YELLOW CLEAR URINE PRESENT IN DRAINAGE BAG. IV PRESENT IN L HAND WITH FLUIDS INFUSING. NO REDNESS OR DRAINAGE TO SITE. CALL LIGHT WITHIN REACH.
--- NOTE | 2023-08-28 09:08 | NUR ---
Pt has been very sleepy this morning. Night nurse reported that he slept most of the night. Woke pt to get up for a walk. Pt stated that she would go for a walk later when she woke up more. Yesterday she stated the same thing stating that she hasn't slept any. Informed her that she reported sleeping most of the night and she has been sleeping most of the morning. Suggested that she get up and take a walk, get cleaned up/gown changed and then could rest if needed. Drsg to drain site changed as it had dried drainage on it. Site looks good with no active drainage. [facility] student is assisting pt with bed bath and gown changed.
--- NOTE | 2023-08-28 09:14 | NUR ---
Pt leans on the wall handrail and relies on it. When pt is going from door to door with no handrail, she does reach for the linen hamper. Educated that it is not safe to lean/reach for that as it is on wheels and is not stable. PT stated that if she does not then she will not be stable. Informed her that she may need to walk with a walker if she is not able to make a few steps without assistance. Pt stated that she will not use a walker.
[2023-08-28] MEDS ORDERED: D5 1/2 NS 1,000 ML IV SCH (11:45)
--- NOTE | 2023-08-28 12:10 | NUR ---
PT REFUSED TO USE INCENTIVE SPIROMETER @ 1100.
--- NOTE | 2023-08-28 12:11 | NUR ---
ORDER VERIFIED TO REMOVE INDWELLING CATHETER. ASEPTIC TECHNIQUE PERFORMED. KEELY CARE PERFORMED. 8 ML OF NS REMOVED FROM CATHETER BULB. CATHETER REMOVED AND TIP INTACT. PT TOLERATED WELL. PT EDUCATED TO CALL FOR ASSISTANCE TO RESTROOM. CALL LIGHT WITHIN REACH.
--- NOTE | 2023-08-28 12:13 | NUR ---
REPORTED OFF TO YOCASTA KENNEY.
--- NOTE | 2023-08-28 12:38 | NUR ---
Removed pt O2 and took pt for a walk. She did okay. When asked about her pain, she rated it high but pt never asks for pain medication. Explained how her PRN pain medication is ordered and discussed with her about she takes pain medication at home. Once done with walk took O2 sats which was 95%. Left pt on room air and encourged her to continue to use IS. IV fluids changed per order. PRN pain medication given at this time.
--- NOTE | 2023-08-28 13:00 | NUR ---
Pt resting with eyes closed even non labored breathing
[2023-08-28] MEDS ORDERED: ZOFRAN 4MG T4 MG/TAB PO (15:08)
--- NOTE | 2023-08-28 15:30 | NUR ---
Drain removed and gauze applied. Pt tolerated with no complaints. Pt is in better spirits and seems to be more motivated than what she has been yesterday and today. Pt never asks for pain medication, but always rates pain 8-9/10. I have again educated on pain medication order and that she can ask for it. No other needs, pt is tolerating the liquid diet
--- NOTE | 2023-08-28 18:15 | NUR ---
Pt continues to do okay. PRN pain medication given, pt reports it did help some. No other needs at this time
--- NOTE | 2023-08-28 20:15 | NUR ---
PT LAYING IN BED WATCHING TV. VSS ON ROOM AIR. STATES ABD PAIN IS 5/10 & THAT THE PRN PAIN MED PRIOR TO SHIFT CHANGE HAS HELPED A LITTLE BIT. X5 ABD LAP SITES MARINE MACHINIST & EDGES WELL APPROX. LLQ ABD DRSG CDI. REFUSING SCDS. ENCOURAGED PT TO AMBULATE. DENIES FURTHER NEEDS. CALL LIGHT IN REACH
--- NOTE | 2023-08-28 22:20 | NUR ---
PT AMBULATING IN [place] WITH X1 ASSIST USING SIDE RAILS
[2023-08-29] VITALS (7 sets, daily range): BP systolic 94–116; BP diastolic 53–70; PULSE 64–87; TEMP 97.3–97.7
--- NOTE | 2023-08-29 01:58 | NUR ---
PT RESTING IN BED WITH UNLABORED RESP. NO C/O PAIN. CALL LIGHT IN REACH
[2023-08-29 05:40] LABS: BASO % 0.5 % (0.0-2.0); EOS # 0.1 K/mm3 (0.0-0.7); EOS % 1.7 % (0.0-4.0); GRAN # 2.8 K/mm3 (1.4-6.5); GRAN % 47.2 % (42.2-75.2); HEMOGLOBIN 10.8 g/dl (12.5-16.0); LYMPH # 2.6 K/mm3 (1.2-3.4); LYMPH % 42.7 % (20.0-51.0); MEAN CELL VOLUME 100 fl (80.0-100.0); MEAN CORPUSCULAR HEMOGLOBIN 32 pg (27-31); MEAN CORPUSCULAR HGB CONC 33 g/dl (33.0-37.0); MEAN PLATELET VOLUME 12.4 fl (7.4-10.4); MONO # 0.5 K/mm3 (0.1-0.6); MONO % 7.7 % (1.7-9.3); PLATELET COUNT 128 K/mm3 (130-400); RED BLOOD COUNT 3.33 M/mm3 (4.10-5.30); REDCELL DISTRIBUTION WIDTH-CV 13.3 % (11.5-14.5)
--- NOTE | 2023-08-29 05:45 | NUR ---
GIVEN PRN OXYCODONE AROUND 0430 PER PT REQUEST FOR ABD PAIN. WHEN REASSESSED PT REPORTED HAD NOT HELPED MUCH RATING PAIN 6 OR 7, GIVEN SCHEDULED TYLENOL & WARM BLANKET. PT DENIES FURTHER NEEDS.
[2023-08-29 05:46] LABS: HEMATOCRIT 33.2 % (37.0-47.0)
[2023-08-29 06:03] LABS: CALCIUM 9.3 mg/dL (8.4-10.2); CREATININE, serum 1.46 mg/dL (0.57-1.11); MAGNESIUM 1.8 mg/dL (1.6-2.6); POTASSIUM 4.6 mmol/L (3.5-4.5)
--- NOTE | 2023-08-29 07:56 | NUR ---
PT RESTING IN BED WITH PAIN 6/10 IN ABD. ALL SITES CLEAN AND DRY, NO REDNESS OR SWELLING. PT PASSING GAS BUT NO BM. TOLERATING FULL LIQUID DEIT WELL AND REPORTS FOLLOWING RESTRICTIONS FOR INTAKE. NO NEEDS AT THIS TIME, WILL CONTINUE TO MONITOR.
--- NOTE | 2023-08-29 11:20 | NUR ---
PT AND FAMILY PROVIDED DISCHARGE INSTRUCITONS. DISCUSSED FOLLOW UP APPOINTMETNS, NEW MEDICATION, AND SIGNS OF INFECTION. NO QUESTIONS AT THIS TIME. IV REMOVED. PT AND BELONGINGS ESCORTED OUT OF BUILDING VIA WHEELCHAIR.
== END 2023-08-29 11:20 | disposition home or self-care (01) | DRG 327 ==
LOC: SURG 08-26 05:34 → INPTSU 08-26 05:34 → SURG 08-26 07:30
PROVIDERS: Internal Medicine; ADMIT Surgery
PROC: 0D164ZA Bypass Stomach to Jejunum, Percutaneous Endoscopic Approach (ICD-10-PCS; 2023-08-26)
PROC: 8E0W4CZ Robotic Assisted Procedure of Trunk Region, Percutaneous Endoscopic Approach (ICD-10-PCS; 2023-08-26)
PROC: 0BQT4ZZ Repair Diaphragm, Percutaneous Endoscopic Approach (ICD-10-PCS; principal; 2023-08-26 07:30)
DX: K21.9 Gastro-esophageal reflux disease without esophagitis (principal); E87.20 Acidosis, unspecified; Z68.41 Body mass index [BMI] 40.0-44.9, adult; K44.9 Diaphragmatic hernia without obstruction or gangrene; K22.70 Barrett's esophagus without dysplasia; M19.90 Unspecified osteoarthritis, unspecified site; J45.909 Unspecified asthma, uncomplicated; M46.1 Sacroiliitis, not elsewhere classified; Z96.653 Presence of artificial knee joint, bilateral; E66.01 Morbid (severe) obesity due to excess calories; I12.9 Hypertensive chronic kidney disease with stage 1 through stage 4 chronic kidney disease, or unspecified chronic kidney disease; N18.9 Chronic kidney disease, unspecified; D64.9 Anemia, unspecified; E78.5 Hyperlipidemia, unspecified; F32.A Depression, unspecified; Z96.643 Presence of artificial hip joint, bilateral; Z90.5 Acquired absence of kidney; Z98.51 Tubal ligation status; Z79.82 Long term (current) use of aspirin; Z79.899 Other long term (current) drug therapy; Z88.8 Allergy status to other drugs, medicaments and biological substances; Z98.84 Bariatric surgery status; Z23 Encounter for immunization
CPT/HCPCS: A4314; A9284; C9113; J0690; J1100; J1170; J1650; J1956; J2250; J2371; J2405; J2598; J2704; J3010; J3480; J7120

== ENCOUNTER → 2023-08-05 | Outpatient (CLI) | payer MEDICARE, MEDICAID | LOC: MHCPAIN 10:45 | DX: M46.1 Sacroiliitis, not elsewhere classified (principal); M47.897 Other spondylosis, lumbosacral region; M96.1 Postlaminectomy syndrome, not elsewhere classified | CPT/HCPCS: G0463 ==

== ENCOUNTER → 2023-09-02 | Outpatient (CLI) | payer MEDICARE, MEDICAID ==
[~2023-09-02] MED LIST changes: +B COMPLEX & B121 TAB PO; +CALCIUM 600MG+D1 TAB PO; +CALCIUM CARBONATE PO; +CARAFATE 1GM1 G PO; +FOLIC ACID 40400 MCG SL; +LASIX 20MG TABL20 MG PO; +LIPITOR20 MG PO; +NATURAL E400 IU PO; +PEPCID 20MG TAB20 MG PO; +PROAIR HFA0.09 MG/AC IH; +PROBIOTIC-MAJOR PO; +PROTONIX 40MG T40 MG PO; +VITAMIN D 400400 IU PO; +VOLTAREN GEL 1%1 TU TP; +ZANAFLEX CAPSULE4 MG PO; +ZANAFLEX2 MG PO; +ZOFRAN 4MG T4 MG/TAB PO; +[UNRECOGNIZED DRUG - CODE] SL
== END ==
LOC: MHCPAIN 11:05
DX: M47.896 Other spondylosis, lumbar region (principal); M96.1 Postlaminectomy syndrome, not elsewhere classified; M79.2 Neuralgia and neuritis, unspecified
CPT/HCPCS: G0463

== ENCOUNTER → 2023-11-25 | Outpatient (CLI) | payer MEDICARE, MEDICAID | LOC: MHCPAIN 11:02 | DX: M47.816 Spondylosis without myelopathy or radiculopathy, lumbar region (principal); M96.1 Postlaminectomy syndrome, not elsewhere classified; M79.2 Neuralgia and neuritis, unspecified | CPT/HCPCS: G0463 ==

== ENCOUNTER → 2024-02-10 | Outpatient (CLI) | payer MEDICARE, MEDICAID ==
[~2024-02-10] MED LIST changes: +BIOTIN2500 MCG PO; +DULCOLAX STOOL100 MG PO; +PROFERRIN ES12 MG PO
== END ==
LOC: MHCPAIN 11:12
DX: M96.1 Postlaminectomy syndrome, not elsewhere classified (principal); M48.061 Spinal stenosis, lumbar region without neurogenic claudication; G89.29 Other chronic pain
CPT/HCPCS: G0463

== ENCOUNTER 2024-02-20 14:03 | Inpatient (IN) | payer MEDICARE, MEDICAID ==
[2024-02-20] VITALS (262 sets, daily range): BP systolic 62–96; BP diastolic 42–64; PULSE 89–153; TEMP 98.1–98.3; O2SAT 97–100
[~2024-02-20] VITALS: Ht 157.5 cm; Wt 101.3 kg
[~2024-02-20 14:03] MED LIST changes: +FERRO-TIME325 MG PO; +PEPCID40 MG PO; -PROFERRIN ES12 MG PO
[2024-02-20 14:21] LABS: ARTERIAL BLD GAS O2 SATURATION 91.3 % (92-100); ARTERIAL BLD GAS TCO2 CT 18.6; ARTERIAL BLOOD GAS BASE EXCESS -6.5 (-2-2); ARTERIAL BLOOD GAS HCO3 17.6 meq/L (22-26); ARTERIAL BLOOD GAS PCO2 30.8 mmHg (35-45); ARTERIAL BLOOD GAS PO2 70.5 mmHg (80-100); ARTERIAL BLOOD GAS pH 7.38 (7.35-7.45)
[2024-02-20] MEDS ORDERED: NS 1,000 ML IV ONE ×3 (14:30→23:15)
[2024-02-20 14:37] LABS: HEMATOCRIT 40.5 % (37.0-47.0); MEAN CELL VOLUME 106 fl (80.0-100.0); MEAN CORPUSCULAR HEMOGLOBIN 34 pg (27-31); MEAN CORPUSCULAR HGB CONC 32 g/dl (33.0-37.0); MEAN PLATELET VOLUME 12.5 fl (7.4-10.4); PLATELET COUNT 179 K/mm3 (130-400); RED BLOOD COUNT 3.84 M/mm3 (4.10-5.30); REDCELL DISTRIBUTION WIDTH-CV 13.1 % (11.5-14.5)
[2024-02-20 14:56] LABS: ALANINE AMINOTRANSFERASE 17 U/L (0-55); ALBUMIN 3.5 g/dL (3.4-4.8); ALKALINE PHOSPHATASE 69 U/L (40-150); ANION GAP 12 mmol/L (7-16); AST,SGOT 22 U/L (5-34); BILIRUBIN,TOTAL 0.7 mg/dL (0.2-1.2); BLOOD UREA NITROGEN 35 mg/dL (10-20); CALCIUM 8.6 mg/dL (8.4-10.2); CHLORIDE 115 mEq/L (98-107); CREATININE, serum 1.97 mg/dL (0.57-1.11); GLUCOSE 114 mg/dL (70-99); POTASSIUM 4.9 mEq/L (3.5-4.5); SODIUM 143 mEq/L (136-145); TOTAL PROTEIN 6.3 g/dl (6.2-8.1)
[2024-02-20 15:00] LABS: LIPASE 8 U/L (8-78)
[2024-02-20] MEDS ORDERED: cefTRIAXone 1 G in Water For Injection,Sterile 10 ML IV ONE (15:15)
[2024-02-20 15:16] LABS: THYROID STIMULATING HORMONE 0.784 uIU/mL (0.350-4.940)
[2024-02-20 15:17] LABS: TROPONIN-I < 0.010 ng/mL (0.00-0.033)
[2024-02-20 15:34] LABS: BAND 38 % (0-10); LYMPHOCYTE 26 % (20.0-51.0); METAMYELOCYTE 5 % (0-0); NEUTROPHILS 25 % (42.0-75.2); PLATELET ESTIMATE NORMAL (NORMAL)
[2024-02-20] MEDS ORDERED: Naloxone 0.4 MG/ML VIAL IV SCH (15:41)
[2024-02-20 15:50] LABS: COLLECTION METHOD CLEAN CATCH
[2024-02-20 16:03] LABS: URINE APPEARANCE CLEAR (CLEAR/HAZY); URINE BLOOD TRACE (NEGATIVE); URINE COLOR YELLOW (YELLOW); URINE GLUCOSE NEGATIVE (NEGATIVE); URINE KETONE NEGATIVE (NEGATIVE); URINE NITRATE NEGATIVE (NEGATIVE); URINE PROTEIN(semi-quant) NEGATIVE (NEGATIVE); URINE UROBILINOGEN 0.2 E.U/dL (0.2-1.0)
[2024-02-20 16:23] LABS: TRICYCLIC ANTIDEPRESS URINE NEGATIVE (NEGATIVE)
[2024-02-20 16:37] LABS: ARTERIAL BLD GAS O2 SATURATION 92.4 % (92-100); ARTERIAL BLD GAS TCO2 CT 19.5; ARTERIAL BLOOD GAS HCO3 18.4 meq/L (22-26); ARTERIAL BLOOD GAS PCO2 36.3 mmHg (35-45); ARTERIAL BLOOD GAS PO2 80.2 mmHg (80-100); ARTERIAL BLOOD GAS pH 7.32 (7.35-7.45)
[2024-02-20] MEDS ORDERED: dexAMETHasone 10 MG/ML VIAL IV SCH (16:53)
[2024-02-20] MEDS ORDERED: Heparin 5,000 UNITS/ML 1 ML VIAL SQ SCH (16:55)
[2024-02-20] MEDS ORDERED: NS 1,000 ML IV SCH ×2 (17:00→23:45)
[2024-02-20] MEDS ORDERED: Ondansetron 4 MG/2 ML VIAL IV PRN (17:00)
[2024-02-20] MEDS ORDERED: Polyethylene Glycol 3350 17 GM PDS PO PRN (17:00)
[2024-02-20] MEDS ORDERED: Doxycycline Hyclate 100 MG in NS 150 ML IV SCH (17:00)
[2024-02-20] MEDS ORDERED: Acetaminophen 325 MG TAB PO PRN (17:00)
[2024-02-20] MEDS ORDERED: Docusate Sodium 100 MG CAP PO PRN (17:00)
--- NOTE | 2024-02-20 17:45 | NUR ---
PT ADMITTED TO ICU3 FROM ED AT THIS TIME. REPORT RECEIVED FROM YOCASTA RAMIREZ. PT VERY LETHARGIC UPON ARRIVAL BUT EVENTUALLY ABLE TO AROUSE WITH STERNAL RUBS. ONCE PT WAS AWAKE SHE WAS ABLE TO ANSWER ORIENTATION QUESTIONS AND MADE AWARE OF HER CONDITION. DR. JAIN EXPLAINED TO PT THAT DUE TO HER LETHARGY AND BEING UNABLE TO STAY AWAKE THAT IT IS RECOMMENDED SHE BE INTUBATED. PT WOULD LIKE TO SPEAK WITH HER GRANDDAUGHTER GONZALO AND SIGNIFICANT OTHER SHAWN FIRST. PT HAS PIV TO LEFT HAND AND RIGHT HAND. ARRIVED TO ICU ON BIPAP AT 60% WITH LABORED BREATHING AND A RR OF 29.
[2024-02-20] MEDS ORDERED: LR 1,000 ML IV SCH (18:00)
[2024-02-20 18:25] LABS: ARTERIAL BLD GAS TCO2 CT 17.9; ARTERIAL BLOOD GAS BASE EXCESS -7.4 (-2-2); ARTERIAL BLOOD GAS PCO2 30.9 mmHg (35-45); ARTERIAL BLOOD GAS PO2 107.7 mmHg (80-100); ARTERIAL BLOOD GAS pH 7.36 (7.35-7.45)
[2024-02-20] MEDS ORDERED: Budesonide Neb Susp 0.5 MG/2 ML AMP IH SCH (19:00)
[2024-02-20] MEDS ORDERED: Formoterol Neb Soln 20 MCG/2 ML UD IH SCH (19:00)
--- NOTE | 2024-02-20 19:15 | NUR ---
PT AND FAMILY HAVE DECIDED THAT SHE WOULD LIKE TO BE INTUBATED; CONSENT OBTAINED FOR INTUBATION AND ARTERIAL LINE PLACEMENT. ANESTHESIA MADE AWARE AND WILL BE OVER SHORTLY.
--- NOTE | 2024-02-20 19:16 | NUR ---
ADMISSION INTAKE ASSESSMENT LIMITED DUE TO PTS LABORED BREATHING AND BEING ON BIPAP. UNABLE TO COMPLETE MED REC DUE TO PTS ACUITY OF ILLNESS.
[2024-02-20] MEDS ORDERED: Naloxone 0.4 MG/ML VIAL IV PRN (19:30)
[2024-02-20] MEDS ORDERED: fentaNYL 100 ML IV SCH (19:30)
[2024-02-20] MEDS ORDERED: fentaNYL 50 MCG/ML 2 ML VIAL IV ONE (19:48)
--- NOTE | 2024-02-20 20:25 | NUR ---
PT INTUBATED AT 1949. 7.5 ETT 22 @TEETH. COLOR CHANGE NOTED. BILATERAL BREATH SOUNDS.PT PLACED ON VENT.
[2024-02-20 21:14] LABS: ARTERIAL BLOOD GAS BASE EXCESS -7.5 (-2-2); ARTERIAL BLOOD GAS PCO2 31.3 mmHg (35-45); ARTERIAL BLOOD GAS pH 7.35 (7.35-7.45)
[2024-02-20 21:18] LABS: ARTERIAL BLOOD GAS PO2 159.4 mmHg (80-100)
[2024-02-20] MEDS ORDERED: Magnesium Sulfate 4% 50 ML IV ONE (22:15)
[2024-02-20] MEDS ORDERED: Amiodarone 450 MG in D5W Excel 250 ML IV SCH (23:00)
[2024-02-20] MEDS ORDERED: Metoprolol Tartrate 5 MG/5 ML VIAL IV SCH (23:00)
[2024-02-20] MEDS ORDERED: Phenylephrine 20 MG in NS 250 ML IV SCH (23:30)
[2024-02-21] VITALS (1161 sets, daily range): BP systolic 77–150; BP diastolic 49–84; PULSE 93–135; TEMP 97.6–98.3; O2SAT 92–100
[2024-02-21 00:08] LABS: ALBUMIN 2.2 g/dL (3.4-4.8); BILIRUBIN,TOTAL 0.4 mg/dL (0.2-1.2); CALCIUM 7.7 mg/dL (8.4-10.2); CREATININE, serum 1.18 mg/dL (0.57-1.11); POTASSIUM 4.8 mEq/L (3.5-4.5); TOTAL PROTEIN 4.2 g/dl (6.2-8.1)
[2024-02-21 00:21] LABS: MAGNESIUM 1.4 mg/dL (1.6-2.6)
[2024-02-21 00:27] LABS: TROPONIN-I 6 HR POST INITIAL 0.01 ng/mL (0.00-0.033)
[2024-02-21] MEDS ORDERED: Vasopressin 20 UNITS in NS 100 ML IV SCH (00:45)
[2024-02-21] MEDS ORDERED: Heparin 5,000 UNITS/ML 1 ML VIAL IV ONE (00:45)
[2024-02-21] MEDS ORDERED: Dextrose 50% Water 25 GM/50 ML SYRINGE IV PRN (00:45)
[2024-02-21] MEDS ORDERED: Heparin/D5W 250 ML IV SCH (00:45)
[2024-02-21] MEDS ORDERED: Dextrose (Glucose) 15 GM (4 x 3.75 GM) Chewable TABLET PACK PO PRN (00:45)
[2024-02-21] MEDS ORDERED: Heparin 5,000 UNITS/ML 1 ML VIAL IV PRN (00:45)
[2024-02-21] MEDS ORDERED: Glucagon 1 MG VIAL IM PRN (00:45)
[2024-02-21 01:25] LABS: PARTIAL THROMBOPLASTIN TIME 34.6 SECONDS (26.0-37.0)
--- NOTE | 2024-02-21 01:56 | NUR ---
1944: PREPPING FOR INTUBATION, TIME OUT PERFORMED MY JOSE, RN. 1947: 100MCG PROP, 120 SUCC 1946: 7.5ETT PLACED, 22 AT LIP, COLOR CHANGE FROM PURPLE TO YELLOW (CO2 MONITOR) 1958: ART LINE PLACED 2014: PROP @ 30 (16.9 ML/HR), FENT @25 (1.3ML/HR) PATIENT PLACED IN 2 POINT SOFT WRIST RESTRAINTS FOR PULLING AT LINES AND TUBES. 2039: PATIENT BLOOD PRESSURES BEGINNING TO GO SOFT, MAP STILL >65 2134: PUT PATIENT ON 0.01 OF LEVOPHED FOR MAP MAINTAINING <65, PROP WAS ALSO DROPPED TO 20MCG/KG/MIN AT THIS TIME. PATIENTS MAP CONT TO BE UNDER 65, PATIENT BECOMES TACHYCARDIC. 2144 PER NICOL ALLEN SHUT OFF FENTANYL, PT TACHYCARDIC ABOVE 150, MAP <65, TAKE OFF LEVOPHED, RUN LR WIDE OPEN. EKG ORDERED, PATIENT IN AFIB W/ RVR. 15 ML OF 5MG/5ML METOPROLOL ORDERED GIVEN IN 5ML DOSES 5 MINS APART. 2216 VASOPRESSIN INITIATED AT 0.04 U/MIN, PATIENT STILL TACHYCARDIC WITH MAP <65 2300 PHENYLEPHERINE INITIATED AT 10MCG/HR 7 TITRATED PER TIFFANY CAMARENA PHENYLEPHERINE TO 20 MCG/HR, AMIODERONE BOLUS ADMINISTERED, FOLLOWED BY A MAINTANCE DRIP OF AMIODERONE. PT IS CURRENTLY (214) MAINTAIN MAP CONSITENTLY ABOVE 65 AND IS BOUNCING BETWEEN HIGH 90S AND LOW 100S FOR HEART RATE
[2024-02-21] MEDS ORDERED: Amiodarone 450 MG in D5W Excel 250 ML IV SCH (04:59)
[2024-02-21 05:24] LABS: MEAN CELL VOLUME 105 fl (80.0-100.0); MEAN CORPUSCULAR HGB CONC 33 g/dl (33.0-37.0); MEAN PLATELET VOLUME 12.5 fl (7.4-10.4); PLATELET COUNT 127 K/mm3 (130-400); RED BLOOD COUNT 2.96 M/mm3 (4.10-5.30); REDCELL DISTRIBUTION WIDTH-CV 13.2 % (11.5-14.5)
[2024-02-21 05:24] LABS: ARTERIAL BLD GAS O2 SATURATION 93.4 % (92-100); ARTERIAL BLD GAS TCO2 CT 18.3; ARTERIAL BLOOD GAS BASE EXCESS -7.8 (-2-2); ARTERIAL BLOOD GAS HCO3 17.3 meq/L (22-26); ARTERIAL BLOOD GAS PCO2 33.6 mmHg (35-45); ARTERIAL BLOOD GAS PO2 91.5 mmHg (80-100); ARTERIAL BLOOD GAS pH 7.33 (7.35-7.45)
[2024-02-21 05:27] LABS: HEMATOCRIT 31.1 % (37.0-47.0); HEMOGLOBIN 10.1 g/dl (12.5-16.0); MEAN CORPUSCULAR HEMOGLOBIN 34 pg (27-31)
[2024-02-21 05:57] LABS: BAND 4 % (0-10); LYMPHOCYTE 19 % (20.0-51.0); NEUTROPHILS 74 % (42.0-75.2); PLATELET ESTIMATE NORMAL (NORMAL)
[2024-02-21 06:07] LABS: ALBUMIN 2.5 g/dL (3.4-4.8); BILIRUBIN,TOTAL 0.5 mg/dL (0.2-1.2); CALCIUM 8.4 mg/dL (8.4-10.2); CREATININE, serum 1.22 mg/dL (0.57-1.11); POTASSIUM 4.6 mEq/L (3.5-4.5)
[2024-02-21 06:15] LABS: TROPONIN-I 6 HR POST INITIAL 0.028 ng/mL (0.00-0.033)
--- NOTE | 2024-02-21 06:49 | NUR ---
SEDATATION VACATION NOT APPROPRIATE AT THIS TIME. PATIENT IS ON 25MCG/KG/MIN OF PROPOFOL ONLY AND WAS INTUBATED LESS THAN 12 HOURS AGO.
--- NOTE | 2024-02-21 07:00 | NUR ---
REPORT RECEIVED FROM TUCKER Quijano RN. PT REMAINS INTUBATED AND SEDATED; TOLERATED VENT WELL AT THIS TIME WITH NO S/S DISCOMFORT. BILATERAL SOFT WRIST RESTRAINTS IN PLACE. PT ON PROPOFOL, NS, AMIO, HEPARIN, AND PHENYLEPHRINE CURRENTLY; SEE MAR/GTT TITRATION FOR RATES. LEFT SUBCLAVIAN TLC CLEAN, DRY, INTACT. PIV TO LEFT HAND AND RIGHT HAND. FC TO DEPENDENT DRAINAGE. OG IN PLACE 55CM AT TEETH; CLAMPED. ETT 23CM AT TEETH. PT DOES HAVE LARGE AMOUNT OF ORAL SECRETIONS LEAKING FROM MOUTH. PT LYING SUPINE AT THIS TIME.
[2024-02-21] MEDS ORDERED: Insulin Lispro (HumaLOG) SQ SCH ×3 (08:00→12:00)
--- NOTE | 2024-02-21 09:02 | NUR ---
This RN spoke with Dr. Alessandro Zamora. Unable to titrate pt off of phenylephrine gtt due to low BP. Dr. Zamora would like phenylephrine dc'd and levophed gtt started instead.
[2024-02-21] MEDS ORDERED: LR 1,000 ML IV SCH ×2 (09:30→11:30)
[2024-02-21] MEDS ORDERED: Sodium Chloride 3% For Neb Soln 4 ML AMP IH SCH (10:00)
[2024-02-21] MEDS ORDERED: Albuterol 0.021% Neb Soln 0.63 MG/3 ML UD IH PRN (10:00)
[2024-02-21] MEDS ORDERED: Acetylcysteine Neb Soln 200 MG/ML 4 ML VIAL IH SCH (10:00)
[2024-02-21 12:23] LABS: ARTERIAL BLD GAS O2 SATURATION 94.1 % (92-100); ARTERIAL BLD GAS TCO2 CT 17.1; ARTERIAL BLOOD GAS BASE EXCESS -8.4 (-2-2); ARTERIAL BLOOD GAS HCO3 16.2 meq/L (22-26); ARTERIAL BLOOD GAS PCO2 29.6 mmHg (35-45); ARTERIAL BLOOD GAS PO2 99.1 mmHg (80-100); ARTERIAL BLOOD GAS pH 7.36 (7.35-7.45)
[2024-02-21] MEDS ORDERED: Albuterol/Ipratropium 3 MG-0.5 MG/3 ML Neb Soln IH SCH (14:00)
[2024-02-21] MEDS ORDERED: cefTRIAXone 2 G in Water For Injection,Sterile 20 ML IV SCH (15:00)
[2024-02-21] MEDS ORDERED: Atorvastatin 20 MG TAB PO SCH (21:00)
[2024-02-22] VITALS (1005 sets, daily range): BP systolic 70–136; BP diastolic 48–99; PULSE 99–157; TEMP 97.6–98.4; O2SAT 92–100
--- NOTE | 2024-02-22 03:03 | NUR ---
DUONEB BREATHING TX GIVEN TO PT AT 0245. PT'S HEART RATE 110-120 BEFORE TX. PT NOTED TO BE TACHYCARDIC IN THE 140-160S AFTER BREATHING TX. MAY BE BENEFICIAL TO PLACE PT ON XOPENEX DUE TO TACHYCARDIA.
[2024-02-22 04:48] LABS: MEAN CELL VOLUME 103 fl (80.0-100.0); MEAN CORPUSCULAR HGB CONC 33 g/dl (33.0-37.0); MEAN PLATELET VOLUME 12.1 fl (7.4-10.4); PLATELET COUNT 129 K/mm3 (130-400); RED BLOOD COUNT 2.92 M/mm3 (4.10-5.30); REDCELL DISTRIBUTION WIDTH-CV 13.3 % (11.5-14.5)
[2024-02-22 04:55] LABS: HEMATOCRIT 30.1 % (37.0-47.0); HEMOGLOBIN 9.9 g/dl (12.5-16.0); MEAN CORPUSCULAR HEMOGLOBIN 34 pg (27-31)
--- NOTE | 2024-02-22 05:01 | NUR ---
SEDATION VACATION NOT COMPLETED DUE TO NO WEANING TRIALS ORDERED TONIGHT. PATIENT ALSO EXTREMELY TACHYCARDIC. DID NOT MAKE PATIENT PARTICIPATE IN SEDATION VACATION TONIGHT.
[2024-02-22 05:07] LABS: ALBUMIN 2.3 g/dL (3.4-4.8); BILIRUBIN,TOTAL 0.5 mg/dL (0.2-1.2); CALCIUM 8.4 mg/dL (8.4-10.2); CREATININE, serum 1.22 mg/dL (0.57-1.11); POTASSIUM 3.8 mEq/L (3.5-4.5); TOTAL PROTEIN 5.1 g/dl (6.2-8.1)
[2024-02-22 05:32] LABS: BAND 11 % (0-10); LYMPHOCYTE 9 % (20.0-51.0); NEUTROPHILS 76 % (42.0-75.2); PLATELET ESTIMATE NORMAL (NORMAL)
[2024-02-22 06:38] LABS: ARTERIAL BLOOD GAS BASE EXCESS -6.9 (-2-2); ARTERIAL BLOOD GAS HCO3 17.1 meq/L (22-26); ARTERIAL BLOOD GAS PCO2 29.2 mmHg (35-45); ARTERIAL BLOOD GAS PO2 103.1 mmHg (80-100); ARTERIAL BLOOD GAS pH 7.39 (7.35-7.45)
[2024-02-22] MEDS ORDERED: Digoxin 0.25 MG/ML 2 ML VIAL IV SCH (08:30)
[2024-02-22] MEDS ORDERED: LASIX 20MG TABL20 MG PO (08:34)
[2024-02-22] MEDS ORDERED: Metoprolol Tartrate 5 MG/5 ML VIAL IV ONE (09:00)
[2024-02-22] MEDS ORDERED: buPROPion XL (24-HR) 150 MG TAB PO SCH (09:00)
--- NOTE | 2024-02-22 09:40 | NUR ---
Patient laying bed at shift change with bipap on, switched to one liter of oxygen on NC, then transitioned to room air without disturpting oxygen saturuation. He insists that we leave him alone at this time. Returned a while later, performed assessment, then he had requested we let him sleep. VSS. Will continue to monitor.
--- NOTE | 2024-02-22 09:45 | NUR ---
Patient is laying in bed with multiple drips and is intubated. ETT is 22 cm at the teeth, OG is 55 cm in clamped status. Dripps that are hanging are Propofol, Lactated Ringers, Heparin, ABX, Fentanyl, Amiodarone, and Levophed. Subsclavin Centeral is infusing without complications. Kilgore is draining appriopriately, yellow urine. Vent settings are A/C mode with 22 RR, 375 tidal volume, 45 Fi02, 8.0 of PEEP, she is tolerating ventilator well. She was turned and cleaned up after a moderate bowel movement, repositioned for comfort. Heparin was shut off in antiicipation of a Bronchoscopy, which was then deferred to a later time due to her blood pressure unstability, therefore Heparin was resumed. Redraw will be in 6 hours, continued at 1400 Units/hr per Cardiology.
[2024-02-22 11:26] LABS: MAGNESIUM 1.8 mg/dL (1.6-2.6); PHOSPHOROUS 2.1 mg/dL (2.3-4.7)
[2024-02-22] MEDS ORDERED: Magnesium Sulfate 4% 50 ML IV ONE (12:00)
[2024-02-22] MEDS ORDERED: Pantoprazole 40 MG in NS 10 ML IV SCH (13:00)
--- NOTE | 2024-02-22 13:32 | NUR ---
Patient had an event this morning with her heart rate and blood pressure. blood pressure became unstable after giving a dose of Lopressor. Heart rate was 150s afib RVR confirmed by ECG. Bolus of Amiodarone 150 mg given, 2.5 mg of Lopressor given. After titrations of Levophed, bloodpressure rebounded and then was in the 200s systolic. Levo was then titrated back to her previous amount, with minimal flucuations. Smaller titrations have been helpful to stabilize blood pressures and MAP. Heart rate was down to the 90s, still showed AFIB. Digoxin loading per cardiology, will have 3 doses Q8hr for today. Will continue to update Scaffold Worker and Hospitalist as events arise.
[2024-02-22] MEDS ORDERED: Potassium Phoshate 30 MM in NS 250 ML IV ONE (14:00)
--- NOTE | 2024-02-22 15:01 | NUR ---
Patient currently intubated and sedated so Lobbyist contacted patient's next of kin, Doris (ph#[phone]). Doris is biologically patient's granddaughter, however patient adopted Doris so she is legally her daughter. Patient lives in [place] with her friend, Servando (ph#[phone]) and sees Dr. Ahumada for primary care. Patient gets her medications at [facility] [address] and has a walker/cane at home that she has as needed. Patient is mostly independent with ADLS, however does occasionally need assistance due to issues with her back, which either Servando or Doris provide. Per Doris, patient has two other daughters, Arias Silvestre (Doris's bio mom) and Jasmina Nuñez. According to Doris, they are estranged from Arias who she last heard might be living in [place]. Jasmina lives locally and is somewhat involved, however has health issues and is vision impaired. Doris advised despite their pleading patient has never made a DPOA-HC. SAVAGE also confirmed this with the PCP office. SAVAGE spoke with [facility] Risk Management. If major decisions about plan of care are to be made, Jasmnia would need to be involved to have a majority of patient's next of kin participating in decision making. Discharge Plan: [facility], on vent
--- NOTE | 2024-02-22 18:25 | NUR ---
Patient is already on minimal sedation and propofol due to eye restriction and VSS instability.
--- NOTE | 2024-02-22 20:00 | NUR ---
Pt resting in bed, appears to be comfortable and without pain. Ventilator in place, pt tolerating well with occassional coughing. Arterial line in place and level to phlebostatic axis. Evening medications given through OG tube without difficulty. IV medications infusing through central line (LSC) and peripheral IV's without difficulty. Assessment completed without difficulty, pt able to move extremeties but does not wake to voice. Will continue to monitor vital signs and pt condition overnight.
[2024-02-23] VITALS (1108 sets, daily range): BP systolic 118–134; BP diastolic 60–79; PULSE 63–96; TEMP 98.1–99; O2SAT 90–100
--- NOTE | 2024-02-23 | NUR ---
Pt continues to rest in bed with ventilator in place. Pt appears comfortable and without pain. VSS. IV medications infusing to central line without difficulty. Pt repositioned and cleaned up, tolerated well. Pt tolerating ventilator well, appears to be coughing less.
[2024-02-23 04:55] LABS: MEAN CELL VOLUME 103 fl (80.0-100.0); MEAN CORPUSCULAR HGB CONC 33 g/dl (33.0-37.0); MEAN PLATELET VOLUME 12.6 fl (7.4-10.4); PLATELET COUNT 129 K/mm3 (130-400); RED BLOOD COUNT 2.76 M/mm3 (4.10-5.30); REDCELL DISTRIBUTION WIDTH-CV 13.5 % (11.5-14.5)
[2024-02-23 04:56] LABS: HEMATOCRIT 28.3 % (37.0-47.0); HEMOGLOBIN 9.3 g/dl (12.5-16.0); MEAN CORPUSCULAR HEMOGLOBIN 34 pg (27-31)
--- NOTE | 2024-02-23 05:00 | NUR ---
Sedation vacation not performed this morning. Pt was battling high heart rates throughout the night. Pt awakens and becomes restless during oral cares and suctioning. Pt grimaces and becomes restless with repositioning, as well.
[2024-02-23 05:13] LABS: ALBUMIN 2.1 g/dL (3.4-4.8); BILIRUBIN,TOTAL 0.5 mg/dL (0.2-1.2); CALCIUM 8.4 mg/dL (8.4-10.2); CREATININE, serum 1.27 mg/dL (0.57-1.11); MAGNESIUM 1.8 mg/dL (1.6-2.6); PHOSPHOROUS 2.5 mg/dL (2.3-4.7); POTASSIUM 3.3 mEq/L (3.5-4.5); TOTAL PROTEIN 4.6 g/dl (6.2-8.1)
[2024-02-23] MEDS ORDERED: *Potassium Replacement Protocol MC SCH (05:30)
[2024-02-23] MEDS ORDERED: Potassium Chloride 100 ML IV SCH ×2 (05:30→15:45)
[2024-02-23 05:56] LABS: BAND 12 % (0-10); LYMPHOCYTE 7 % (20.0-51.0); NEUTROPHILS 79 % (42.0-75.2)
[2024-02-23 05:57] LABS: PLATELET ESTIMATE NORMAL (NORMAL)
--- NOTE | 2024-02-23 07:23 | NUR ---
Overnight nurse reported that Ms. Michael converted to NSR at 0012 on 02/24/24. Heart rate, art line waveform, and respirations are correlating appropriately. Heart rate has been NSR in the 70-80 range after last dose of Digoxin. Yesterday there was an increase in her Amiodarone gtt as well from the normal 0.5 mg maintenance dose to the 1 mg continued. Potassium was low, and is currently being replaced, no ABG was drawn this morning, will consult with Community Health Outreach Worker for recommendations. She seems more alert this morning. Ett is at 22 at the teeth, OG is 55 at the lip. Medications to include Heparin, Propofol, Fentanyl, and Amiodarone are infusing without complications. Kilgore is draing yellow clear urine, approximately 1500 ml overnight. Sugars have normalized requiring minimal coverage. Levophed was shut off at 0145 shortly after conversion to NSR> WBC did jump in the last few days, this am is 22,000. Tolerating Vent and current tube feeds at 10 ml/hr with 30 ml flushes Q4 HR.
[2024-02-23] MEDS ORDERED: Furosemide 40 MG/4 ML VIAL IV ONE ×2 (08:45→12:00)
[2024-02-23 09:29] LABS: ARTERIAL BLD GAS O2 SATURATION 91.7 % (92-100); ARTERIAL BLD GAS TCO2 CT 17.8; ARTERIAL BLOOD GAS BASE EXCESS -6.2 (-2-2); ARTERIAL BLOOD GAS PCO2 25.8 mmHg (35-45); ARTERIAL BLOOD GAS PO2 73.9 mmHg (80-100); ARTERIAL BLOOD GAS pH 7.44 (7.35-7.45)
--- NOTE | 2024-02-23 10:07 | NUR ---
MOVED ETT FROM 23 @ LIPS TO 22 @ LIPS PER DR Alessandro BEYER. TOLERATED WELL
--- NOTE | 2024-02-23 11:10 | NUR ---
[employer] Tuber Machine Operator followed up with patient's daughter, Doris and friend, Servando to provide update on next of kin/decision making. Per Risk Management, if a major medical decision was needed for patient, patient's other daughter, Jasmina would need to be included. Doris verbalized understanding and is supportive of this. Doris has Jasmina's contact information if needed. Doris did again confirm there has been no contact with other daughter, Arias.
[2024-02-23] MEDS ORDERED: Insulin Lispro (HumaLOG) SQ SCH (12:00)
--- NOTE | 2024-02-23 13:15 | NUR ---
Patient is resting in bed with ETT at [address] Ramos needed to have the ETT moved one cm out, previous measurement was 22 at the teeth. Lasix was given twice. First dose was 20 mg IV push, with a 3 hour output of 1050 ml of clear yellow fluid. No significant fluctuation in blood pressure, therefore, second dose of 20 mg of lasix was given again. So far blood pressure has been stable ranging from 120-130s systolic. Patient has been triggering vent, when assessing her, she is much more alert, following some commands, tracking people in the room, and shaking her head yes and no. Bumped sedation and Fentanyl to help her relax while monitoring for other changes in vitals. Art line removed without complications. Will continue care.
[2024-02-23 14:53] LABS: MAGNESIUM 1.8 mg/dL (1.6-2.6); PHOSPHOROUS 2.4 mg/dL (2.3-4.7); POTASSIUM 3.4 mEq/L (3.5-4.5)
--- NOTE | 2024-02-23 18:43 | NUR ---
SEDATION VACATION NOT DONE AT THIS TIME. PT WAKES EASILY TO VOICE. WEANING TRIAL TO BE DONE IN AM.
[2024-02-24] VITALS (875 sets, daily range): BP systolic 122–148; BP diastolic 60–104; PULSE 63–79; TEMP 98.1–98.7; O2SAT 88–100
[2024-02-24 05:30] LABS: MEAN CELL VOLUME 103 fl (80.0-100.0); MEAN CORPUSCULAR HGB CONC 33 g/dl (33.0-37.0); MEAN PLATELET VOLUME 12.3 fl (7.4-10.4); PLATELET COUNT 117 K/mm3 (130-400); REDCELL DISTRIBUTION WIDTH-CV 13.5 % (11.5-14.5)
[2024-02-24 05:43] LABS: CALCIUM 8.5 mg/dL (8.4-10.2); CREATININE, serum 1.42 mg/dL (0.57-1.11); POTASSIUM 3.9 mEq/L (3.5-4.5)
[2024-02-24 06:02] LABS: HEMATOCRIT 28.8 % (37.0-47.0); HEMOGLOBIN 9.4 g/dl (12.5-16.0); MEAN CORPUSCULAR HEMOGLOBIN 34 pg (27-31)
[2024-02-24 06:19] LABS: ARTERIAL BLD GAS O2 SATURATION 93.5 % (92-100); ARTERIAL BLD GAS TCO2 CT 22.1; ARTERIAL BLOOD GAS BASE EXCESS -2.1 (-2-2); ARTERIAL BLOOD GAS HCO3 21.1 meq/L (22-26); ARTERIAL BLOOD GAS PCO2 30.4 mmHg (35-45); ARTERIAL BLOOD GAS PO2 82.7 mmHg (80-100); ARTERIAL BLOOD GAS pH 7.46 (7.35-7.45)
[2024-02-24 06:39] LABS: BAND 15 % (0-10); LYMPHOCYTE 14 % (20.0-51.0); NEUTROPHILS 66 % (42.0-75.2); PLATELET ESTIMATE DECREASED (NORMAL)
--- NOTE | 2024-02-24 07:01 | NUR ---
PATIENT WEANED DOWN ON MEDS PROPOFOL AT 10 MCQ/KG/MIN FENTANYL OFF/ TUBE FEED HAS BEEN OFF SINCE MIDNIGHT/ OK WE'RE READY
[2024-02-24 09:41] LABS: ARTERIAL BLD GAS TCO2 CT 20.3; ARTERIAL BLOOD GAS BASE EXCESS -3.5 (-2-2); ARTERIAL BLOOD GAS HCO3 19.5 meq/L (22-26); ARTERIAL BLOOD GAS PO2 80.1 mmHg (80-100); ARTERIAL BLOOD GAS pH 7.46 (7.35-7.45)
--- NOTE | 2024-02-24 11:42 | NUR ---
PT PLACED ON CPAP TRIAL AT AROUND 0830am RSBI RANGED 28-35 GREAT VOLUMES AND RR 15-20. ABLE TO FOLLOW COMMANDS AND RAISE HEAD OFF THE PILLOW WITH DR BEYER AT BEDSIDE. ABG DRAWN AT APPROXIMATELY 0930 WITH GOOD RESULTS. PER DR BEYER EXTUBATE AFTER MEDICATION GIVEN TIME. 1047 PT EXTUBATED TO 2L/NC SPO2 95%. TOLERATED WELL. NO CONCERNS WILL CONTINUE TO MONITOR.
--- NOTE | 2024-02-24 13:59 | NUR ---
PT IS RESTING IN THE BED. SHE IS STILL INTUBATED. SHE IS ALERT AND DOES FOLLOW COMMANDS. A SEDATION VACATION IS UNDER WAY WITH HOPES OF EXTUBATION LATER. HER TUBE FEEDINGS HAVE BEEN HELD. SHE DOES HAVE A WOODS CATHETER DRAINING YELLOW URINE. SHE HAS AN OG TUBE CLAMPED OFF. SHE HAS A CENTRAL LINE AND A PERIPHERAL IV. SHE IS ON A HEPARIN AND AMIODERONE DRIP.
--- NOTE | 2024-02-24 16:20 | NUR ---
Warning Analyst spoke with bedside RN who advised patient was extubated this morning.
[2024-02-24] MEDS ORDERED: Potassium Chloride 100 ML IV ONE (20:45)
--- NOTE | 2024-02-24 21:01 | NUR ---
PATIENT IN BED RESTING WITH EYES OPEN, RESPONSONDING APPROPRIATELY, A&OX4 AND HAS A PLEASANT DEMEANOR. PATIENT C/O BACK PAIN RELATED TO POSITIONING, SO THIS NURSE ASSISTED PATIENT TO GET IN A MORE COMFORTABLE POSITION. PATIENT DID BECOME A LITTLE TEARY EYED DURING MY ASSESSMENT BECAUSE SHE MISSES HER FAMILY. SHE ALSO EXPRESSES CONFUSION TO HOW SHE EVEN GOT HERE BECAUSE THE LAST THING SHE RECALLS DOING BEFORE WAKING UP IN THE ICU WAS TAKING OUT HER CONTACTS. I SPOKE WITH THE PATIENT A BIT ABOUT WHAT I KNEW ABOUT HER ARRIVAL TO THE HOSPITAL, AND ASSURED HER THAT HER FAMILY HAD BEEN IN TO SEE HER WHILE SHE WAS INTUBATED. PATIENT IS NOW RESTING, WATCHING TV. BED IS IN LOW POSITION, BED ALARMS ON AND CALL LIGHT IS IN REACH.
[2024-02-25] VITALS (714 sets, daily range): BP systolic 93–148; BP diastolic 24–108; PULSE 60–79; TEMP 98.1–98.2; O2SAT 69–100
[2024-02-25] MEDS ORDERED: Pregabalin 150 MG CAP PO SCH (00:36)
--- NOTE | 2024-02-25 00:48 | NUR ---
PT STATES SHE IS GOING THROUGH [facility] WITHDRAWALS THIS IS A MEDICATION SHE NORMALLY TAKES AT HOME. SPOKE WITH GUERDA VERONICA, ORDERS TO FOLLOW
--- NOTE | 2024-02-25 05:19 | NUR ---
PATIENT SEEMED TO BE CONFUSED OVERNIGHT. SHE WAS ABLE TO ANSWER ALL OF THE ORIENTATION QUESTIONS, DID WELL WITH THE LETTERS TEST, AND THE DISORGANIZED THINKING TEST, BUT SHE WAS HAVING TROUBLE WITH THINGS SUCH THE CALL LIGHT, THE TELEVISION, WHAT SHE WANTED WHEN I WAS IN THERE. THIS WAS AT 4AM, SO THIS COULD BE DO TO SLEEPINESS.
[2024-02-25 05:39] LABS: MEAN CELL VOLUME 103 fl (80.0-100.0); MEAN CORPUSCULAR HGB CONC 33 g/dl (33.0-37.0); MEAN PLATELET VOLUME 12.7 fl (7.4-10.4); PLATELET COUNT 118 K/mm3 (130-400); RED BLOOD COUNT 2.71 M/mm3 (4.10-5.30); REDCELL DISTRIBUTION WIDTH-CV 13.8 % (11.5-14.5)
[2024-02-25 05:51] LABS: HEMATOCRIT 27.8 % (37.0-47.0); HEMOGLOBIN 9.1 g/dl (12.5-16.0); MEAN CORPUSCULAR HEMOGLOBIN 34 pg (27-31)
[2024-02-25 06:02] LABS: CALCIUM 8.6 mg/dL (8.4-10.2); CREATININE, serum 1.42 mg/dL (0.57-1.11); MAGNESIUM 1.8 mg/dL (1.6-2.6); POTASSIUM 3.7 mEq/L (3.5-4.5)
[2024-02-25] MEDS ORDERED: Potassium Chloride 100 ML IV SCH (06:15)
[2024-02-25 07:08] LABS: LYMPHOCYTE 12 % (20.0-51.0); METAMYELOCYTE 2 % (0-0); NEUTROPHILS 65 % (42.0-75.2)
[2024-02-25 07:10] LABS: BAND 13 % (0-10); PLATELET ESTIMATE DECREASED (NORMAL)
[2024-02-25] MEDS ORDERED: dexAMETHasone 4 MG/ML VIAL IV SCH (09:00)
--- NOTE | 2024-02-25 14:09 | NUR ---
PT IS SLEEPING IN THE BED. SHE IS ALERT AND ORIENTED. SHE REMAINS ON A NASAL CANNULA WITH SOME INCREASING IN OXYGEN NEEDS. SHE HAS A WOODS CATHETER. SHE IS LYING ON HER SIDE DUE TO SOME BACK PAIN. SHE HAS A CENTRAL LINE WITH HEPARIN AND AMIODARONE INFUSING.
--- NOTE | 2024-02-25 14:31 | NUR ---
Metal Reclamation Kettle Tender met with patient and daughter, Doris at bedside with RN to discuss DPOA-HC. Patient expressed some hesitancy and SW explained that without DPOA-HC, her three children would be DPOA-HC. Patient adamant she does not want her daughter Arias involved. SW provided encouragement that this is why we suggest a DPOA-HC so we respect her healthcare wishes. Patient stated she wants to designate, Doris and Servando. SW assisted patient in completing the form. SAVAGE and YOCASTA Farah provided witness signature. SW placed copy in chart then provided original and copies to patient. Later on, SAVAGE reviewed therapy notes and IPR is recommended. SAVAGE discussed this by phone with Doris who is agreeable to referral and will discuss this with patient tomorrow. Discharge Plan: IPR Screen
--- NOTE | 2024-02-25 20:00 | NUR ---
PT C/O BACK PAIN PT GIVEN TYLENOL AND LYRICA. REPOSITIONED PT TO HER SIDE. PT STATES SHE HAS HAD BACK SURGERY AND TAKE HYDROCODONE AT HOME.
--- NOTE | 2024-02-25 23:21 | NUR ---
FRIEND AT THE BEDSIDE. PT IS CURRENTLY ON 5L NC WHILE SHE EATS AND VISITS.
[2024-02-26] VITALS (952 sets, daily range): BP systolic 90–131; BP diastolic 50–96; PULSE 51–85; TEMP 97.9–98.3; O2SAT 59–100
--- NOTE | 2024-02-26 | NUR ---
PT REMAINS STABLE ON ROUNDS. BRADYCARDIC WITH SOFT PRESSURES. AMIODARONE DECREASED TO 0.5 MG/MIN AT 2300. WILL CONTACT HOSPITALIST REGARDING TITRATION. CONTINUE PLAN OF CARE.
[2024-02-26 05:28] LABS: ARTERIAL BLD GAS O2 SATURATION 93.2 % (92-100); ARTERIAL BLOOD GAS BASE EXCESS -4.4 (-2-2); ARTERIAL BLOOD GAS HCO3 19.6 meq/L (22-26); ARTERIAL BLOOD GAS PO2 83.3 mmHg (80-100)
[2024-02-26 06:09] LABS: MEAN CELL VOLUME 102 fl (80.0-100.0); MEAN CORPUSCULAR HGB CONC 33 g/dl (33.0-37.0); MEAN PLATELET VOLUME 11.7 fl (7.4-10.4); PLATELET COUNT 130 K/mm3 (130-400)
[2024-02-26 06:23] LABS: HEMATOCRIT 26.6 % (37.0-47.0); HEMOGLOBIN 8.7 g/dl (12.5-16.0); MEAN CORPUSCULAR HEMOGLOBIN 33 pg (27-31)
[2024-02-26 06:24] LABS: CALCIUM 8.7 mg/dL (8.4-10.2); CREATININE, serum 1.26 mg/dL (0.57-1.11); MAGNESIUM 1.8 mg/dL (1.6-2.6)
--- NOTE | 2024-02-26 07:17 | NUR ---
HEP XA 0.93. PT IS NOT LONGER ON HEPARIN. DISCUSSED WITH DAY SHIFT RN. SHE WILL ASK CARDIOLOGY ON ROUNDS IF THEY WANT TO TREAT.
[2024-02-26 07:56] LABS: BAND 8 % (0-10); EOSINOPHIL 2 % (0-4); HYPOCHROMIA 1+; LYMPHOCYTE 23 % (20.0-51.0); NEUTROPHILS 56 % (42.0-75.2); PLATELET ESTIMATE NORMAL (NORMAL)
[2024-02-26] MEDS ORDERED: Apixaban 5 MG TABLET PO SCH (09:00)
[2024-02-26] MEDS ORDERED: Amiodarone 200 MG TAB PO SCH (09:00)
[2024-02-26] MEDS ORDERED: Furosemide 40 MG/4 ML VIAL IV ONE (09:15)
--- NOTE | 2024-02-26 10:14 | NUR ---
PT LAYING IN BED UPON ENTERING. BIPAP REMOVED AND PT PLACED ON 3L NASAL CANNULA. PT DENIES PAIN. AMIODARONE DRIP STOPPED AND ORAL DOSE GIVEN PER ORDER. WOODS PATENT. PT DENIES NEEDS. BED IN LOWEST POSITION, CALL LIGHT IN REACH, BED ALARM ON.
[2024-02-26] MEDS ORDERED: hydrALAZINE 10 MG TAB PO PRN (11:45)
--- NOTE | 2024-02-26 14:26 | NUR ---
Structural Steel Painter attended clinical rounds with the team and updated Hospitalist that IPR plans to follow patient through the weekend. Discharge Plan; IPR Screen
--- NOTE | 2024-02-26 19:30 | NUR ---
Received report from YOCASTA Quiroz, and YOCASTA Samano. Patient resting quietly in bed. Continues to receive 3L oxygen via nasal cannula, tolerating well. Patient has visitor at bedside; they are watching TV quietly. Patient denies pain or discomfort. Vitals within normal limits.
[2024-02-27] VITALS (1088 sets, daily range): BP systolic 100–138; BP diastolic 63–78; PULSE 75–92; TEMP 97.7–98.6; O2SAT 58–100
[2024-02-27 03:56] LABS: MEAN CELL VOLUME 104 fl (80.0-100.0); MEAN CORPUSCULAR HGB CONC 32 g/dl (33.0-37.0); MEAN PLATELET VOLUME 11.5 fl (7.4-10.4); PLATELET COUNT 155 K/mm3 (130-400); RED BLOOD COUNT 2.68 M/mm3 (4.10-5.30); REDCELL DISTRIBUTION WIDTH-CV 13.9 % (11.5-14.5)
[2024-02-27 03:57] LABS: HEMATOCRIT 27.9 % (37.0-47.0); HEMOGLOBIN 8.8 g/dl (12.5-16.0); MEAN CORPUSCULAR HEMOGLOBIN 33 pg (27-31)
[2024-02-27 04:05] LABS: CALCIUM 8.7 mg/dL (8.4-10.2); MAGNESIUM 1.7 mg/dL (1.6-2.6); POTASSIUM 3.6 mEq/L (3.5-4.5)
[2024-02-27 04:16] LABS: BAND 1 % (0-10); EOSINOPHIL 1 % (0-4); LYMPHOCYTE 16 % (20.0-51.0); METAMYELOCYTE 2 % (0-0); MYELOCYTE 2 % (0-0); NEUTROPHILS 72 % (42.0-75.2); PLATELET ESTIMATE NORMAL (NORMAL)
[2024-02-27 04:21] LABS: CREATININE, serum 1.31 mg/dL (0.57-1.11)
[2024-02-27] MEDS ORDERED: Potassium Chloride 100 ML IV SCH (05:00)
--- NOTE | 2024-02-27 07:30 | NUR ---
Report received from YOCASTA Hall. Reviewed overnight events and labs. Pt resting on 3L NC. Pt had large, incontient, loose BM. Bed change provided. Pt denies any pain. Kilgore in place with clear yellow urine. Pt denies any other needs at this time. Call light with reach. will continue with POC.
[2024-02-27] MEDS ORDERED: Magnesium Sulfate 4% 50 ML IV ONE (11:00)
[2024-02-27 13:41] LABS: CLOSTRIDIUM DIFF A/B NEG
[2024-02-27] MEDS ORDERED: Loperamide 2 MG CAP PO PRN (14:30)
--- NOTE | 2024-02-27 17:33 | NUR ---
Pt up to chair with 2 person assist for dinner. Pt tolerated transfer well.
--- NOTE | 2024-02-27 19:49 | NUR ---
Report called to YOCASTA Medrano. All questions answered. Pt escorted up to [phone] via wheelchair.
--- NOTE | 2024-02-27 19:55 | NUR ---
PT TRANSFERRED TO THIS ROOM FROM ICU VIA WHEELCHAIR BY YOCASTA PRASAD. PT PLACED IN APPROPRIATE ISOLATION PRECAUTIONS FOR COVID DIAGNOSIS. RT UP TO BRING BIPAP FOR PT TO USE FOR SLEEP. PT ASKS AT THIS TIME IF DOCTOR ORDERED MELATONIN AND PAIN MEDS SHE DISCUSSED WITH HIM TODAY. NO ORDERS SEEN, THIS RN CALLED NIGHT HOSPITALIST TO ADDRESS. ORDERS RECEIVED.
[2024-02-27] MEDS ORDERED: Melatonin 3 MG TAB PO PRN (20:30)
[2024-02-27] MEDS ORDERED: oxyCODONE/Acetaminophen 7.5-325 MG TAB PO PRN (20:45)
[2024-02-28] VITALS (7 sets, daily range): BP systolic 101–121; BP diastolic 50–55; PULSE 75–92; TEMP 97.6–98.4
--- NOTE | 2024-02-28 01:30 | NUR ---
PT CALLED RN IN AND REQUESTED BIPAP OFF. SHE STATES SHE HAS NOT BEEN ABLE TO REST THIS NIGHT WITH THE MASK ON AND WANTS IT OFF FOR AWHILE. PT MOVED TO O2 AT 3L NC AND THIS RN NOTIFIED RT OF CHANGE.
[2024-02-28 06:28] LABS: CALCIUM 8.2 mg/dL (8.4-10.2); CREATININE, serum 1.24 mg/dL (0.57-1.11); POTASSIUM 3.9 mEq/L (3.5-4.5)
--- NOTE | 2024-02-28 06:39 | NUR ---
NOTIFIED BY LAB OF LOW GLUCOSE ON MORNING LABS. FINGER STICK AT THIS TIME 76, PT FEELS FINE. GIVEN APPLE JUICE TO DRINK.
--- NOTE | 2024-02-28 08:34 | NUR ---
PATIENT RESTING IN BED UPON ENTERING ROOM. MORNING MEDICATIONS ADMINISTERED PER eMAR. PATIENT DENIES ANY PAIN. REPORTS SOB, CURRENTLY ON 3L O2 VIA NC. PATIENT HAS A WOODS IN PLACE, DRAINING CLEAR YELLOW URINE. PATIENT UPDATED ON PLAN OF CARE. BED ALARM IN PLACE, CALL LIGHT WITHIN REACH. DR. BEYER RECOMMENDING WE REMOVED THE WOODS AND START HAVING PATIENT UP TO RECLINER THROUGHOUT THE DAY. HE WILL ALSO ORDER INCENTIVE SPIROMETER, RT AWARE.
[2024-02-28] MEDS ORDERED: Potassium Bicarbonate/Citrate 20 MEQ Effervescent TAB PO ONE (09:00)
[2024-02-28] MEDS ORDERED: NS 500 ML IV ONE (11:30)
[2024-02-28] MEDS ORDERED: NS 1,000 ML IV ONE (15:00)
[2024-02-28] MEDS ORDERED: Iohexol 300 - 100 ML VIAL IV ONE (16:16)
--- NOTE | 2024-02-28 21:40 | NUR ---
Patient resting in bed. Denies any pain at this time. Assissted patient to bathroom and back to bed. Assessment complete. IJ to left side infusing without complications and flushes easlily with good blood return. Call light and personal items in reach. Bed in low position and bed alarm on.
[2024-02-29] VITALS (12 sets, daily range): BP systolic 108–122; BP diastolic 50–91; PULSE 59–92; TEMP 97.8–98.3
--- NOTE | 2024-02-29 06:29 | NUR ---
PATIENT OFF BIPAP ATT. SPO2 ON RA 94%. BS COARSE. RT TX GAVE AT THIS TIME, RADHA QUINTANILLA.
[2024-02-29 06:42] LABS: ALBUMIN 2.2 g/dL (3.4-4.8); BILIRUBIN,TOTAL 0.3 mg/dL (0.2-1.2); CALCIUM 8.9 mg/dL (8.4-10.2); CREATININE, serum 1.29 mg/dL (0.57-1.11); MAGNESIUM 1.9 mg/dL (1.6-2.6); PHOSPHOROUS 4.5 mg/dL (2.3-4.7); POTASSIUM 3.9 mEq/L (3.5-4.5)
--- NOTE | 2024-02-29 08:53 | NUR ---
PATIENT RESTING IN BED UPON ENTERING ROOM. MORNING MEDICATIONS ADMINISTERED PER eMAR. PATIENT IS CURRENTLY ON 2.5L O2 VIA NC. AMBULATES AROUND ROOM WITH SOME ASSISTANCE. UPDATED PATIENT ON PLAN OF CARE. DENIES ANY PAIN OR NEEDS AT THIS TIME. CHAIR ALARM IN PLACE, CALL LIGHT WITHIN REACH. WILL CONTINUE TO MONITOR.
[2024-02-29] MEDS ORDERED: Potassium Bicarbonate/Citrate 20 MEQ Effervescent TAB PO ONE (09:00)
--- NOTE | 2024-02-29 09:52 | NUR ---
drive worker attended clinical rounding and was informed pt is pending IPR review, awaiting OT's note. SW met with pt and provided Medicare.gov HH list for review, in the event I[facility] cannot accept. SW answered all questions with patient and provided SW number. Discharge Plan: IPR vs Home Health
[2024-02-29] MEDS ORDERED: NS 1,000 ML IV ONE (12:15)
--- NOTE | 2024-02-29 20:45 | NUR ---
Initial shift assessment done- sitting up in chair/talking on phone/watching TV, no requests, states pain to back chronic/would like a percocet , given, denies SOB at this time, o2 at 2L/nc with sats 96-98%, ready to get back to bed anf get put on BiPap for the night, states she hopes to sleep good tonight-- did give Melatoni at this time. tele on 88/min/sinus
[2024-03-01] VITALS (10 sets, daily range): BP systolic 98–124; BP diastolic 50–83; PULSE 70–89; TEMP 97.9–99
--- NOTE | 2024-03-01 06:10 | NUR ---
Quiet night- slept well , VSS, Tolerated Bipap all night
--- NOTE | 2024-03-01 07:16 | NUR ---
PATIENT ON RA, 93%. RIGHT LUNG SOUNDS BETTER TODAY. NPC. PATIENT STATES HER COUGH IS MORE LOOSE TODAY.
--- NOTE | 2024-03-01 09:52 | NUR ---
structural steel ironworker was informed I[facility] will likely decline pt as it was reported she does not want to be in the hospital any longer. SW called pt's room phone x2 and her cell phone and left voicemail to discuss discharge planning. Pt did not answer, so SW met with pt in her doorway. SW inquired if pt reviewed the Home Health list. Pt reports the only agency she would want is [facility] , but she is skeptical about people coming into her home. Pt reports she feels the most assistance is needed in the shower and her grand-daughter can help her with this. She would like to get home and assess, then follow up with her PCP if she needs Home Health. SAVAGE notes therapy reccomended a walker. SW asked pt about this and she declined. SAVAGE verbally completed IM from Medicare with pt. She provided verbal consent. SAVAGE made a copy and provided to RN due to isolation status and placed original in her chart. SAVAGE informed YOCASTA Werner on the above discharge discussion with pt. Discharge Plan: home
--- NOTE | 2024-03-01 10:00 | NUR ---
PATIENT SITTING IN BED WATCHING TV. ALERT AND ORIENTED X4. REPORTS PAIN OF 7/10 TO BACK AND LEGS.TELEMETRY INPLACE, ON ROOM AIR. DENIES ANY OTHER NEED AT THIS TIME. CALL LIGHT WITHIN REACH. CHAIR ALARM ON.
--- NOTE | 2024-03-01 11:54 | NUR ---
skidway worker received a call from pt reporting she will allow a walker to be ordered, if covered by Medicare. SW advised this could be covered and ordered. Pt expressed no preference and was fine with [facility] processing this. SAVAGE emailed DME order over to home medical. SAVAGE spoke with NICOL Diallo who has not yet rounded on pt. SAVAGE provided that IPR declined pt and she was eager to get out of the hospital. PA will call with any updates in the afternoon. Discharge Plan: home
--- NOTE | 2024-03-01 13:37 | NUR ---
patient left internal jugular central line removed by this nurse per protocol. patient instructed to remain flat for 30 minutes following removal.patient tolerated removal well.
[2024-03-01] MEDS ORDERED: CORDARONE200 MG/TAB PO (13:41)
[2024-03-01] MEDS ORDERED: ELIQUIS 5MG PO (13:42)
[2024-03-01] MEDS ORDERED: PROAIR HFA0.09 MG/AC IH (13:45)
--- NOTE | 2024-03-01 15:00 | NUR ---
SAVAGE was informed by NICOL Diallo that pt will discharge. SAVAGE informed YOCASTA Werner per [facility] the FWW will be brought to her room at 3:30pm. Discharge Plan: home; declined HH
--- NOTE | 2024-03-01 17:20 | NUR ---
community health worker was notified by patient that she wanted to try home health services. SW discussed options that patient reviewed on the Medicare.gov list. Patient chose [facility] as the first choice and [facility] as second choice. SW faxed referral and orders to [facility]. SW will follow up tomorrow if they are able to accept, if not she will send to [facility]. Discharge plan: Home with home health
--- NOTE | 2024-03-01 17:59 | NUR ---
patient discharge instructions given. vitals checked per family memeber request, vss within normal limits. patient denies pain and discomfort at this time. patient family memeber at bedside. patient denied any questions. instructed to call when ready to be transported out of unit. call light within reach. bed at lowest position.
--- NOTE | 2024-03-01 18:30 | NUR ---
patient escorted out of unit by pct.
--- NOTE | 2024-03-02 13:27 | NUR ---
licensed social worker was notified [facility] is unable to accept patient. SAVAGE Freedman faxed referral and orders to [facility] . [facility] yet. SAVAGE secure emailed the referral to [facility] . Discharge plan: Home with Home Health
== END 2024-03-01 18:30 | disposition home health service (06) | DRG 871 ==
LOC: COL.ER 14:03 → ICU 15:52 → MEDICAL 02-27 19:51
PROVIDERS: Family Medicine; Internal Medicine; Internal Medicine Pulmonary Disease; Nurse Practitioner; Physician Assistant; ADMIT Hospitalist
PROC: 05H633Z Insertion of Infusion Device into Left Subclavian Vein, Percutaneous Approach (ICD-10-PCS; principal; 2024-02-20)
DX: A41.89 Other specified sepsis (principal); G93.41 Metabolic encephalopathy; J12.82 Pneumonia due to coronavirus disease 2019; R65.21 Severe sepsis with septic shock; U07.1 COVID-19; J96.01 Acute respiratory failure with hypoxia; N17.9 Acute kidney failure, unspecified; J45.909 Unspecified asthma, uncomplicated; N18.9 Chronic kidney disease, unspecified; E87.5 Hyperkalemia; I48.91 Unspecified atrial fibrillation; E66.01 Morbid (severe) obesity due to excess calories; K21.9 Gastro-esophageal reflux disease without esophagitis; F32.A Depression, unspecified; I10 Essential (primary) hypertension; E78.5 Hyperlipidemia, unspecified; M46.1 Sacroiliitis, not elsewhere classified
CPT/HCPCS: A9284; C1751; J0282; J0696; J1100; J1160; J1644; J1650; J1720; J1815; J1940; J2310; J2371; J2470; J2543; J2598; J2704; J3010; J3475; J3480; J7030; J7040; J7050; J7060; J7120; Q9967

== ENCOUNTER → 2024-03-25 | Outpatient (CLI) | payer MEDICARE ==
[~2024-03-25] MED LIST changes: +CORDARONE200 MG/TAB PO; +ELIQUIS 5MG PO
== END ==
LOC: COL.RAD 15:57
DX: M46.1 Sacroiliitis, not elsewhere classified (principal)